=== PATIENT | female | born 1950 | race Caucasian/White ===

== ENCOUNTER → 2017-04-05 | Outpatient (CLI) | payer BC ==
--- NOTE | 2017-04-05 13:36 | WWHP ---
CHIEF COMPLAINT: The patient is here for her routine gynecologic exam and mammogram. HPI: This is a 66-year-old G2, P2 with an LMP of 1998. Patient is without gynecologic complaints. PAST MEDICAL HISTORY: Type 2 diabetes, coronary artery disease, elevated cholesterol, chronic hypertension, osteopenia and history of cardiac valve insufficiency. MEDICATIONS: Losartan 100 mg/25 mg daily, metoprolol 100 mg bid, metformin 500 t.i.d., Lipitor 80 mg daily, vitamin D3 1000 units daily, aspirin 325 mg daily, fish oil supplement, which she uses occasionally, [place]-3 supplement b.i.d. ALLERGIES: CARDIAC CATHETERIZATION DYE, which caused difficulty breathing and hives and PENICILLIN, which caused an unknown reaction. 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 SOCIAL HISTORY: She denies tobacco, alcohol and drug use. She has been since 1972. FAMILY HISTORY: Both parents had a IA and brother also had a IA. Mother had lung cancer. Father and two brothers had diabetes. Maternal aunt had breast cancer and some type of gynecologic cancer. REVIEW OF SYSTEMS: She has gained about 3 pounds over the last year. She denies respiratory, cardiac, or GI problems. PHYSICAL EXAM: Blood pressure 157/78, height 5 feet 0 inches, weight 156 pounds. Temperature 98.1, pulse 63. This is a well developed, well nourished white female who is alert and oriented x3 in no acute distress. HEENT is within normal limits. Neck is supple without mass or thyromegaly. Chest and lungs clear to auscultation. Heart: Regular rate and rhythm. Breasts are without mass or discharge. Axillary exam is negative for adenopathy. Back negative for CVA tenderness. Abdomen is soft, nontender without palpable masses. Pelvic exam: External genitalia reveals mild atrophy without lesions. Cervix and vagina reveals mild atrophy without lesions. There is no evidence of prolapse. The uterus is mid-position, nongravid size and nontender. There are no palpable adnexal masses or tenderness. Rectovaginal exam is negative for mass or tenderness and is negative for occult blood. Extremities are nontender. IMPRESSION: 1. A 66-year-old menopausal female with normal gynecologic exam. 2. History of osteopenia. 3. Multiple medical problems. 4. Elevated blood pressure with history of chronic hypertension. PLAN: 1. PAP smear was deferred since she had a normal one last year. 2. Self breast examination was discussed. 3. Mammogram will be done today. 4. We have discussed her elevated blood pressure. I have recommended that she do home blood pressure checks on a regular basis and follow up with Dr. Tan for blood pressure elevations. 5. Osteoporosis prevention was discussed. We will plan on repeating bone density testing in one year. 6. She will return in one year. HEIDI
--- NOTE | 2017-04-06 08:03 | MM ---
Reason for exam: screening (asymptomatic). Last mammogram was performed 1 year and 6 months ago. History: Patient is postmenopausal. Family history of breast cancer in maternal aunt at age 71. Benign excisional biopsy of the right breast. Physical Findings: A clinical breast exam by your physician is recommended on an annual basis and results should be correlated with mammographic findings. MG Screening Mammo w CAD Bilateral CC and MLO view(s) were taken. Prior study comparison: October 07, 2015, bilateral MG screening mammo w CAD. July 16, 2014, bilateral MG screening mammo w CAD. There are scattered fibroglandular densities. There is no discrete abnormality. No significant changes when compared with prior studies. ASSESSMENT: Negative, BI-RAD 1 RECOMMENDATION: Routine screening mammogram of both breasts in 1 year.
== END | disposition home or self-care (01) ==
LOC: WWCWWP 09:17
PROVIDERS: ATTEND Obstetrics & Gynecology
DX: Z12.31 Encounter for screening mammogram for malignant neoplasm of breast (principal)

== ENCOUNTER → 2018-05-24 | Outpatient (CLI) | payer MEDICARE, OTHER ==
[2018-05-24 09:47] VITALS: BP 196/84; PULSE 71; TEMP 97; BMI 30.7
--- NOTE | 2018-05-24 10:36 | P.HPOB ---
History of Present Illness H&P Date: 05/24/18 Chief Complaint: The patient is here for her routine gynecologic exam and mammogram. This is a 68-year-old G2 PII with an LMP of 1998. The patient is without gynecologic complaints and denies any postmenopausal bleeding. Review of Systems The patient's weight has been stable. She denies respiratory, cardiac and G.I. problems. She denies maltreatment or problems with falling. : she denies any significant problems with urinary leakage. Past Medical History Past Medical History: Coronary Artery Disease (CAD), Diabetes Mellitus (Type II diabetes), Hyperlipidemia, Hypertension Additional Past Medical History / Comment(s): Cardiac valve insufficiency and osteopenia (used Fosamax for 3 months). 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 History of Any Multi-Drug Resistant Organisms: None Reported Past Surgical History: Breast Surgery (Biopsy in the past), Coronary Bypass/ CABG (Triple bypass), Heart Catheterization With Stent (2013) Additional Past Surgical History / Comment(s): triple bypass. Colonoscopy 2013 (2nd). Date of Last Stent Placement:: 10/24/13 Past Psychological History: No Psychological Hx Reported Smoking Status: Never smoker Past Alcohol Use History: None Reported Past Drug Use History: None Reported Additional History: She has been since 1972. - Past Family History Father Family Medical History: Diabetes Mellitus, Myocardial Infarction ([place]) Mother Family Medical History: Cancer (lung), Myocardial Infarction ([place]) Additional Family Medical History / Comment(s): Maternal aunt had breast cancer. Brother(s) Family Medical History: Diabetes Mellitus Medications and Allergies Home Medications Medication Instructions Recorded Confirmed Type Aspirin PO DAILY 05/24/18 05/24/18 History Atorvastatin [Lipitor] 0.5 PO DAILY 05/24/18 History Cholecalciferol (Vitamin D3) PO DAILY 05/24/18 History [Vitamin D3] Losartan/Hydrochlorothiazide PO DAILY 05/24/18 History [Losartan-Hctz 100-25 mg Tab] Metoprolol Tartrate [Lopressor] PO BID 05/24/18 History [place]-3 Fatty Acids/Fish Oil [Fish PO DAILY 05/24/18 History Oil 1,000 mg Softgel] metFORMIN HCL [Glucophage] PO TID 05/24/18 History Allergies Allergy/AdvReac Type Severity Reaction Status Date / Time Penicillins Allergy Unknown Nausea Unverified 05/24/18 09:41 Exam Vital Signs Temp Pulse BP 05/24/18 09:42 97.0 F L 71 196/84 Intake and Output 05/23/18 05/24/18 05/24/18 22:59 06:59 14:59 Other: Weight 71.214 kg Height 5'0", BMI 30.7, repeat blood pressure 166/96. This is a well-developed well-nourished heavyset white female who is alert and oriented times 3 in no acute distress. HEENT: Within normal limits. NECK: Supple without mass or thyromegaly. CHEST AND LUNGS: Clear to auscultation. HEART: Regular rate and rhythm. BREASTS: Are without mass or discharge. AXILLARY EXAM: Negative for adenopathy. BACK: Negative for CVA tenderness. ABDOMEN: Soft, nontender, without palpable masses. PELVIC EXAM: Normal external genitalia with mild atrophy. Cervix and vagina appear normal with mild atrophy. There is no unusual discharge. There is no evidence of prolapse. The uterus is midposition, nongravid size and nontender. There are no palpable adnexal masses or tenderness. RECTAL EXAM: rectovaginal exam is negative for mass or tenderness and is negative for occult blood. EXTREMITIES: Nontender. IMPRESSION: 1. 68-year-old menopausal female with normal gynecologic exam. 2. History of osteopenia. 3. History of chronic hypertension with elevated blood pressure today. 4. Multiple medical problems. PLAN: 1. Pap smear was performed. 2. Self breast awareness was discussed with the patient. 3. Screening mammogram will be done today. 4. We discussed her blood pressure elevation. I have stressed the importance of having regular blood pressure checks and follow up with her primary care physician and exercise scientist for blood pressure elevations. She does have a blood pressure cuff at home and I have recommended that she take her blood pressure at least daily. I have asked her to record her blood pressures and to follow up with her doctors for blood pressure elevations. 5. Osteoporosis prevention was discussed. I have recommended repeating her bone density testing. She would like to do this at her next annual visit in one year. 6. She plans to get a flu shot in the near future. 7. She will return in one year.
--- NOTE | 2018-05-25 12:43 | MM ---
Reason for exam: screening (asymptomatic). Last mammogram was performed 1 year and 2 months ago. History: Patient is postmenopausal. Family history of breast cancer in maternal aunt at age 71. Benign excisional biopsy of the right breast. Physical Findings: A clinical breast exam by your physician is recommended on an annual basis and results should be correlated with mammographic findings. MG Screening Mammo w CAD Bilateral CC and MLO view(s) were taken. Prior study comparison: April 05, 2017, bilateral MG screening mammo w CAD. October 07, 2015, bilateral MG screening mammo w CAD. There are scattered fibroglandular densities. There is chronic nodularity bilaterally. No significant changes when compared with prior studies. ASSESSMENT: Benign, BI-RAD 2 RECOMMENDATION: Routine screening mammogram of both breasts in 1 year.
== END | disposition home or self-care (01) ==
LOC: WWCWWP 09:21
PROVIDERS: ATTEND Obstetrics & Gynecology
DX: Z12.31 Encounter for screening mammogram for malignant neoplasm of breast (principal)
CPT/HCPCS: 77067

== ENCOUNTER 2020-06-08 00:44 | Emergency (ER) | payer MEDICARE, OTHER ==
[2020-06-08 00:56] VITALS: RESP 16
[2020-06-08] MEDS ORDERED: HYDROcodone/APAP 5-325MG 1 EACH TAB PO STA (01:23)
--- NOTE | 2020-06-08 01:47 | XR ---
EXAM: XR Right Forearm, 2 Views CLINICAL HISTORY: ITS.REASON XR Reason: fall, pain TECHNIQUE: Frontal and lateral views of the right forearm. COMPARISON: No previous studies. FINDINGS: Bones/joints: Acute comminuted fracture of the distal right radius is noted with dorsal angulation of the fracture fragment distally. Mild osteoarthritic changes about the right wrist joint. No dislocation. Soft tissues: Soft tissue swelling. IMPRESSION: 1. Acute fracture of the distal right radius with dorsal angulation. 2. Soft tissue swelling.
--- NOTE | 2020-06-08 01:47 | ED ---
General Adult HPI - General Chief complaint: Extremity Injury, Upper Stated complaint: Fall, rt arm injury Time Seen by Provider: 06/08/20 01:04 Source: patient, family, RN notes reviewed, old records reviewed Mode of arrival: ambulatory Limitations: no limitations - History of Present Illness Initial comments: 70-year-old female patient proceeded for evaluation of a mechanical fall. Patient reports that she was helping her ambulate when their legs became tangled up and they fell to the ground. Reports her arm was caught underneath her. Complaining of distal radius pain. Denies hitting her head. Denies any injury besides her wrist. Denies any new neck pain or back pain. Systemic: Pt denies fatigue, fever/chills, rash. Pt denies weakness, night sweats, weight loss. Neuro: Pt denies headache, visual disturbances, syncope or pre-syncope. HEENT: Pt denies ocular discharge or irritation, otalgia, rhinorrhea, pharyngitis or notable lymphadenopathy. Cardiopulmonary: Pt denies chest pain, SOB, heart palpitations, dyspnea on exertion. Abdominal/GI: Pt denies abdominal pain, n/v/d. : Pt denies dysuria, burning w/ urination, frequency/urgency. Denies new onset urinary or bowel incontinence. Neuro: Pt denies new onset weakness, paresthesias. - Related Data Home Medications Medication Instructions Recorded Confirmed Aspirin PO DAILY 05/24/18 05/24/18 Atorvastatin [Lipitor] 0.5 PO DAILY 05/24/18 Cholecalciferol (Vitamin D3) PO DAILY 05/24/18 [Vitamin D3] Losartan/Hydrochlorothiazide PO DAILY 05/24/18 [Losartan-Hctz 100-25 mg Tab] Metoprolol Tartrate [Lopressor] PO BID 05/24/18 [place]-3 Fatty Acids/Fish Oil [Fish PO DAILY 05/24/18 Oil 1,000 mg Softgel] metFORMIN HCL [Glucophage] PO TID 05/24/18 Allergies Allergy/AdvReac Type Severity Reaction Status Date / Time Penicillins Allergy Unknown Nausea Verified 06/08/20 00:56 Iodine and Iodide Containing Allergy Anaphylaxis Verified 06/08/20 00:56 Produc Review of Systems ROS Statement: Those systems with pertinent positive or pertinent negative responses have been documented in the HPI. ROS Other: All systems not noted in ROS Statement are negative. Past Medical History Past Medical History: Coronary Artery Disease (CAD), Diabetes Mellitus, Hyperlipidemia, Hypertension Additional Past Medical History / Comment(s): Cardiac valve insufficiency and osteopenia (used Fosamax for 3 months). 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 History of Any Multi-Drug Resistant Organisms: None Reported Past Surgical History: Breast Surgery, Coronary Bypass/CABG, Heart Catheterization With Stent Additional Past Surgical History / Comment(s): triple bypass. Colonoscopy 2013 (2nd). Date of Last Stent Placement:: 10/24/13 Past Psychological History: No Psychological Hx Reported Smoking Status: Never smoker Past Alcohol Use History: None Reported Past Drug Use History: None Reported - Past Family History Father Family Medical History: Diabetes Mellitus, Myocardial Infarction ([place]) Mother Family Medical History: Cancer (lung), Myocardial Infarction ([place]) Additional Family Medical History / Comment(s): Maternal aunt had breast cancer. Brother(s) Family Medical History: Diabetes Mellitus General Exam - General Exam Comments Initial Comments: Constitutional: NAD, AOX3, Pt has pleasant affect. HEENT: NC/AT, trachea midline, neck supple, no lymphadenopathy. External ears appear normal, without discharge. Mucous membranes moist. Eyes PERRLA, EOM intact. There is no scleral icterus. No pallor noted. Cardiopulmonary: RRR, no murmurs, rubs or gallops, no JVD noted. Lungs CTAB in anterior and posterior perales. No peripheral edema. Abdominal exam: Abdomen soft and non-distended. Abdomen non-tender to palpation in all 4 quadrants. Bowel sounds active in LLQ. No hepatosplenomegaly. No ecchymosis Neuro: CN II-XI intact. No nuchal rigidity. No raccon eyes, no harvey sign, no hemotympanum. No cervical spinal tenderness. MSK: Right distal radius tender to palpation some soft tissue swelling. No laceration. Full active ROM of fingers, neurovascularly intact. Radial pulse +2 bilaterally. All extremities arepalpated no other signs of trauma or tenderness is noted. Patient placed in sugar tong splint neurovascularly intact before and after splint placement. Limitations: no limitations Course Vital Signs 06/08/20 06/08/20 00:52 02:00 Temperature 98.9 F Pulse Rate 73 75 Respiratory 16 16 Rate Blood Pressure 188/101 178/89 O2 Sat by Pulse 99 97 Oximetry Medical Decision Making - Medical Decision Making 70-year-old female patient presented to ED for evaluation mechanical fall. Physical exam displayed distal radius tenderness, plain film displayed distal radius fracture. Pt ambulatory without difficulty. Patient placed in sugar tong splint discharge the patient follow-up and return precautions her case discussed with Dr. aCsas. Disposition Clinical Impression: Distal radius fracture Disposition: HOME SELF-CARE Condition: Stable Instructions (If sedation given, give patient instructions): Wrist Fracture in Adults (ED) Additional Instructions: Continue to wear splint. Follow up with orthopedic consult tomorrow. Return to ER with any worsening symptoms. Is patient prescribed a controlled substance at d/c from ED?: No Referrals: Scott Tan DO [Primary Care Provider] - 1-2 days Garrick Reid DO [Doctor of Osteopathic Medicine] - 1-2 days
--- NOTE | 2020-06-08 01:49 | XR ---
EXAM: XR Right Hand Complete, 3 or More Views CLINICAL HISTORY: ITS.REASON XR Reason: fall, pain TECHNIQUE: Frontal, lateral and oblique views of the right hand. COMPARISON: No previous study. FINDINGS: Bones/joints: Moderate osteoarthritic changes at the DIP and PIP joints. Acute fracture of the distal right radius. Carpal bones are unremarkable. No acute fractures the osseous structures of the hand. No dislocation. Soft tissues: Unremarkable. No radiopaque foreign body. IMPRESSION: 1. Advanced osteoarthritic changes of the hand. 2. Acute fracture of the distal right radius.
--- NOTE | 2020-06-08 01:50 | XR ---
EXAM: XR Right Wrist, 2 Views CLINICAL HISTORY: ITS.REASON XR Reason: fall, pain TECHNIQUE: Frontal and lateral views of the right wrist. COMPARISON: No previous studies. FINDINGS: Bones/joints: Acute fracture of the distal right radius is noted with dorsal undulation of the distal fracture fragment. Mild osteoarthritic changes about the carpal bones. No dislocation. Soft tissues: Soft tissue swelling about the right wrist showed. No radiopaque foreign body. IMPRESSION: 1. Acute fracture of the distal right radius with dorsal angulation appeared 2. Soft tissue swelling.
[2020-06-08] MEDS ORDERED: ACET/COD 300 MG/30 MG STARTER PACK 6 TAB BTL PO STA (02:51)
[2020-06-08 03:09] VITALS: BP 180/73; PULSE 66; TEMP 98.1
== END 2020-06-08 03:03 | disposition home or self-care (01) ==
LOC: EC 00:44
DX: S52.591A Other fractures of lower end of right radius, initial encounter for closed fracture (principal); I25.10 Atherosclerotic heart disease of native coronary artery without angina pectoris; E78.5 Hyperlipidemia, unspecified; I10 Essential (primary) hypertension; E11.9 Type 2 diabetes mellitus without complications; Z79.82 Long term (current) use of aspirin; Z88.0 Allergy status to penicillin; Z91.048 Other nonmedicinal substance allergy status; Z95.1 Presence of aortocoronary bypass graft; W19.XXXA Unspecified fall, initial encounter
CPT/HCPCS: 29515; 99284

== ENCOUNTER 2020-06-13 10:47 | Day surgery (SDC) | payer MEDICARE, OTHER ==
[2020-06-11 08:39] VITALS: BMI 27.3
[~2020-06-13 10:47] MED LIST: DEXAMETHASONE SOD PHOSPHATE 10 MG/ML 1 ML VIAL IV ONE; LACTATED RINGERS 1,000 ML IV SCH; LIDOCAINE 1% (10MG/ML) FOR IV START INTRADERMA PRN; ONDANSETRON 4 MG/2 ML VIAL IVP ONE
[2020-06-13 11:31] LABS: Glucose,Whole Blood 151 mg/dL (75-99)
[2020-06-13 11:32] VITALS: RESP 16
[2020-06-13] MEDS ORDERED: MIDAZOLAM 2 MG/2 ML VIAL IV ONE (12:12)
[2020-06-13] MEDS ORDERED: PROPOFOL 10 MG/ML 20 ML VIAL IV ONE (12:54)
[2020-06-13] MEDS ORDERED: fentaNYL (PF) 50 MCG/ML 2 ML AMP ONE (12:54)
[2020-06-13] MEDS ORDERED: ePHEDrine SULFATE/0.9% NACL/PF 50 MG/5 ML SYRINGE IV ONE (12:54)
[2020-06-13] MEDS ORDERED: LIDOCAINE 1% INJ 10MG/ML (20 ML MDV) ONE (12:54)
[2020-06-13] MEDS ORDERED: SUCCINYLCHOLINE CHLORIDE 100 MG/5 ML SYR IV ONE (12:54)
[2020-06-13] MEDS ORDERED: DEXAMETHASONE SOD PHOSPHATE 4 MG/ML 1 ML VIAL ONE (12:54)
[2020-06-13] MEDS ORDERED: ROPIVACAINE 5 MG/ML 30 ML VIAL ONE (12:54)
[2020-06-13] MEDS ORDERED: MIDAZOLAM 2 MG/2 ML VIAL ONE (12:54)
--- NOTE | 2020-06-13 12:56 | P.HPOR ---
History of Present Illness H&P Date: 06/13/20 Chief Complaint: R wrist pain with fracture The patient is a 70 year old female with a chief complaint of pain in the right wrist. Patient states that on 06/07/2020 that she fell while helping her into the bathroom at home and landed on her right arm. 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 Patient was seen in the Emergency Room where xrays were obtained and she was placed in a splint. She states that she has had right wrist pain for 2 days. She reports radial sided wrist pain with swelling. She has been wearing her splint at all times. Patient is taking Tylenol with codeine as needed for pain. Patient is ambulating independently. Review of Systems 14 points review of systems completed and as stated in HPI or otherwise negative. Past Medical History Past Medical History: Coronary Artery Disease (CAD), Diabetes Mellitus, Hyperlipidemia, Hypertension Additional Past Medical History / Comment(s): Cardiac valve insufficiency and osteopenia (used Fosamax for 3 months). History of Any Multi-Drug Resistant Organisms: None Reported Past Surgical History: Breast Surgery, Coronary Bypass/CABG, Heart Catheterization With Stent Additional Past Surgical History / Comment(s): triple bypass. Colonoscopy 2013 (2nd),EDUARDO Past Anesthesia/Blood Transfusion Reactions: No Reported Reaction Additional Past Anesthesia/Blood Transfusion Reaction / Comment(s): unknown hx of blood transfusion. Date of Last Stent Placement:: 10/24/13 Smoking Status: Never smoker - Past Family History Father Family Medical History: Diabetes Mellitus, Myocardial Infarction (OK) Mother Family Medical History: Cancer, Myocardial Infarction ([place]) Additional Family Medical History / Comment(s): Maternal aunt had breast cancer. Brother(s) Family Medical History: Diabetes Mellitus Medications and Allergies Home Medications Medication Instructions Recorded Confirmed Type Aspirin 325 mg PO DAILY 05/24/18 06/11/20 History Atorvastatin [Lipitor] 80 mg PO DAILY 05/24/18 06/11/20 History Cholecalciferol (Vitamin D3) 2,000 unit PO DAILY 05/24/18 06/11/20 History [Vitamin D3] Losartan/Hydrochlorothiazide 1 tab PO QAM 05/24/18 06/11/20 History [Losartan-Hctz 100-25 mg Tab] Metoprolol Tartrate [Lopressor] 200 mg PO QAM 05/24/18 06/11/20 History metFORMIN HCL [Glucophage] 500 mg PO TID 05/24/18 06/11/20 History Acetaminophen-Codeine 300-30mg 1 - 2 tab PO Q4-6H PRN 06/11/20 06/11/20 History [Tylenol w/codeine #3] Ezetimibe [Zetia] 10 mg PO DAILY 06/11/20 06/11/20 History Metoprolol Tartrate [Lopressor] 100 mg PO 1700 06/11/20 06/11/20 History amLODIPine BESYLATE 5 mg PO QAM 06/11/20 06/11/20 History Allergies Allergy/AdvReac Type Severity Reaction Status Date / Time Penicillins Allergy Unknown Nausea Verified 06/11/20 08:18 Iodine and Iodide Containing Allergy Anaphylaxis Verified 06/11/20 08:18 Produc alendronate sodium AdvReac severe Verified 06/11/20 08:46 [From Fosamax] sore mouth,loss of taste Physical Examination Osteopathic Statement: *. No significant issues noted on an osteopathic structural exam other than those noted in the History and Physical/Consult. General: Well appearing, well nourished in no distress. Body Habitus: Mesomorphic WRIST: right Swelling: moderate Ecchymosis: mild Deformity: none Tenderness: distal radius Pain on forearm rotation: moderate Skin: intact, except as noted above Neurovascular: intact sensation, good pulses Motor: able to flex/extend fingers actively DRUJ: stable Elbow: non tender Shoulder: non tender Results XRAY: 2 views of the right wrist were reviewed today. These demonstrate a wrist fracture: there is comminution intra-articular extension of the distal radius. While there is good alignment at this time I do feel that this has a high propensity for failure secondary to the patient's dominant wrist as well as the comminution. There is dorsal comminution as well as shortening in the original films which is significant. While holding in the splint right now. Assessment and Plan Assessment: RIGHT distal radius fracture, closed, displaced, comminuted. Plan: Orthopedic Surgery Risk Review Jessica Romano is a 70 yo RHD female presenting for evaluation of sudden onset R wrist pain, inability to bear weight after falling while helping her who has parkinsons. It was my pleasure to have seen and examined Jessica Romano. In our visit today we have had a chance to go over subjective complaints, physical examination findings and treatments including the natural course history without intervention and various interventional options. Her imaging demonstrates Comminuted intraarticular distal radius fracture with dorsal angulation. On physical exam, Jessica Romano demonstrates pain with motion of the fingers of the RUE, wrist and pain with palpation, which is NV intact at this time. I have explained to the patient that this fracture needs stabilization. Based on the patients imaging, physical exam, and the rapid progression and disabling nature of her symptoms, at this time I recommend surgery in the form or a:ORIF R distal radius I discussed the risk and benefits of this procedure at length with Jessica Romano. Questions were invited and answered, and the patient wishes to proceed as outlined below. Currently, I am recommendin. Open reduction and internal fixation of RIGHT distal radius with plates and screws. 2. Review of surgical risks and benefits as well as an educational packet on the proposed surgical procedure. 3. Follow up with PCP prior to surgery for clearance Risks: All surgical procedures come with inherent risks, including those related to positioning, anesthesia, intraoperative findings, and postoperative complications. It is important to understand that surgery does not come with any guarantee of a successful outcome as complications and adverse events are always possible. The patient was given a handout discussing the surgical procedure and risks associated with the intervention, both of which were discussed with the patient. These risks include but are not limited to the following: - Experiencing same, different or even worse symptoms compared to before surgery. - Requiring further surgery or other forms of treatment presently or at some time in the future . - On an extreme but fortunately relatively rare basis severe complication such as blindness, stroke, heart attack, temporary and/or permanent nerve injury, paralysis, coma, or may occur, sometimes without known explanati on. - Surgical complications may include but are not limited to risk of infection, fluid accumulation in the surgical dissection site, including a seroma or hematoma, that requires additional surgery, wound drainage, bleeding, new numbness or weakness, vision changes/loss, spinal fluid leakage, non-healing and/or infected incision, headaches, difficulty or inability to swallow, hoarseness, hemopneumothorax, pneumothorax, injury to nerves, spinal cord, blood vessels, lymphatics or other vital organs (i.e., bowel injury, injury to the great vessels); heterotopic bone formation; complications related to the hardware such as screws, rods, including misplaced hardware, device failure, hardware fracture/breakage, or hardware loosening; retained surgical instrumentations or devices and the need for further surgery. - Medical risks of the planned surgery include but are not limited to generalized Infections to the whole body or local areas outside of the surgical site (sepsis), heart attack, bleeding, anaphylaxis, meningitis, seizure, epilepsy, hearing loss, burn crook, laceration of the head or other areas of the body, bruising, hypersensitivity of the skin, bladder over distension; allergic reaction; shoulder injury related to positioning; fat, blood and air clots to other areas of the body like heart, lungs, brain; failure of internal organs such as lungs, kidneys, liver and excessive bleeding. If blood transfusions are necessary, note that transfusions may cause intolerance reactions such as anaphylaxis or other complex reactions. Despite best efforts, the results of surgery might not heal in terms of bone, soft tissues such as skin, fascia, ligaments, and joints. [facility] is an educational center that serves as a training facility for physician assistants, nurses, orthopedic residents and fellows. Residents are physicians who are completing their surgical intensive training following medical school. They assist in the operating room with direct supervision of the attending surgeons. [place] are surgeons who have completed their training and eligible for board certification. They have opted for an elective year of more specialized training in their field. They assist in the operating room under the supervision of the attending surgeons. Physician assistants are medically trained surgical providers who function in the outpatient, inpatient, and operating room setting under the direct supervision of the attending surgeon. [facility] has multiple operating rooms with single and overlapping rooms running daily. They currently function under the required guidelines as produced by the [facility] Finance Committee with regards to the overlapping rooms and will continue to comply with changes to this policy as they occur. The requirements include and are complied with as follows: (1) the critical portions of the overlapping rooms will not occur at the same time, (2) the attending physician will be physically present during the critical portions of the procedure and immediately available during the entire case, and (3) a back-up attending is designated should the primary attending not be immediately available. The patient has had a chance to review all the listed information, has been given print outs detailing this information, and has had all his/her questions answered to their satisfaction. It was my pleasure to have seen and examined Jessica Romano. In our visit today we have had a chance to go over my understanding of our patient's current condition, the natural course history without intervention and various interventional options. Questions were invited and answered, and the patient wishes to proceed as outlined above. I have seen and examined the patient for 25 minutes and we have spent more than 50% of the time in repeat and detailed counseling about the patient's condition, its natural course history with out and as much as can be predicted with surgery and re-review of various surgical treatment options. In conclusion, Jessica Romano requested we proceed with the above suggested surgery and are willing to accept risks and limitations of the suggested surgery as nature of the disease process and our best attempts at treatment for the condition. Thank you again for allowing us to be part of your patient's care. Please don't hesitate to contact me if you have any further questions. Signed and authenticated by: Garrick Orta [facility] [place] [address] [address]
[2020-06-13] MEDS ORDERED: CLINDAMYCIN 600 MG in SODIUM CHLORIDE 0.9% 1,000 ML IRRIGATION ONE (13:21)
[2020-06-13 14:25] VITALS: TEMP 97
--- NOTE | 2020-06-13 14:39 | P.OP ---
Date of Procedure: 06/13/20 Preoperative Diagnosis: Right distal radius fracture, intraarticular, comminuted, minimally displaced Postoperative Diagnosis: Right distal radius fracture, intraarticular, comminuted, minimally displaced Procedure(s) Performed: ORIF right distal radius with plate and screws Implants: Arthrex 3.5 distal radius plate, narrow Anesthesia: MAC Surgeon: Garrick Reid Estimated Blood Loss (ml): 10 IV fluids (ml): 200 Urine output (ml): 0 Pathology: none sent Condition: stable Disposition: PACU Indications for Procedure: The patient is a 70 year old female with a chief complaint of pain in the right wrist. Patient states that on 06/07/2020 that she fell while helping her into the bathroom at home and landed on her right arm. 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 Patient was seen in the Emergency Room where xrays were obtained and she was placed in a splint. She states that she has had right wrist pain for 2 days. She reports radial sided wrist pain with swelling. She has been wearing her splint at all times. Patient is taking Tylenol with codeine as needed for pain. Patient is ambulating independently. Operative Findings: Acute, nondisplaced, comminuted distal radius fracture, unstable intraoperatively. Description of Procedure: The patient was seen and examined in the preoperative area. All preoperative protocols were followed. Informed consent was obtained risks and benefits of the procedure were discussed at length. Risks including bleeding infection damage to the surrounding tissue and risk of reoperation were discussed with the patient. Risk of anesthesia up to and including was a discussed with the patient. These are outlined in the risk reviewed. They were willing to accept these risks and all of the risks of surgery. The patient was given a weight- based dose of antibiotics in the form of 2 g Ancef IVPB 1. The patient was seen and evaluated by the anesthesia team who deemed them fit for surgery. The site was marked, the patient was willing to proceed with the procedure. The patient was transferred to the operative suite by the Department of anesthesia. There were then drifted off to sleep by the department of anesthesia and Bob with LMA anesthesia was used. Once adequate anesthesia had been obtained the patient was carefully transferred to the operative bed. All bony prominences were padded accordingly. SCDs were placed on the nonoperative lower extremities. Arms were well padded. Right arm was exposed and placed on a arm board. 18 tourniquet was placed in the patient's upper arm and well-padded. Preoperative briefing was done with the operative team and everyone was ready for the procedure to start. The patients right arm was then prepped and draped in the normal sterile fashion. Timeout was then performed and all parties in agreement with the procedure to be performed. Skin marker was used to otto out a volar Armando approach over the FCR. Tourniquet was inflated to 200 mmHg after exsanguination of the arm with an Esmarch. Incision was made and blunt dissection was taken down to the FCR sheath. This is identified and cleaned. Once his identifying cleating inside knife was used to incise the FCR sheath. FCR was then retracted medially and the sheath was incised in the deep layer. Blunt dissection was then taken down removing the flexors medially to ensure protection of the nerve. The pronator quadratus was encountered and was still intact although ecchymotic and swollen. The pronator quadratus was then removed from the radial border in L-shaped fashion and then the distal border using sharp dissection followed by blunt dissection. The distal radius bone was exposed and visualized. The fracture was identified and reduced. Once in a reduced position a plate was selected and placed under fluoroscopic guidance. 35 pins were placed in the plate to hold it in place. A shaft screw was then placed in the variable hole. This was drilled and measured and then the screw was placed. Attention was then drawn to the proximal roll of the distal portion of the plate. One nonlocking screw was placed in this after being drilled and measured appropriately. This is confirmed to be in good position under lateral fluoroscopy. This followed by placement of the distal row pegs in a locking fashion these were drilled and measured confirmed under lateral fluoroscopy and then placed atraumatically. The remaining proximal row screws were then drilled measured and placed appropriately. Once confirming good position on AP and lateral fluoroscopy the remainder of the shaft screws were placed through drill and measure method. Plate was confirming good position on AP and lateral screw lengths were confirmed to be good in AP and lateral. 30 radial tilt view demonstrated no screws within the intra-articular space. The fracture maintained good reduction throughout. The wound was then copiously irrigated with normal sterile saline. Tourniquet was then dropped and any bleeders were electrocauterized. Good hemostasis was confirmed. The pronator quadratus was sutured back over the plate. The wrist was ranged and the wrist was stable. The subcu was then closed using 3-0 Vicryl in a simple fashion followed by running 4-0 Monocryl subcuticular region. This was then cleaned and dried and skin glue was placed over the skin. Once this dried the wound was then dressed with sterile Adaptic 4 x 4 and Kerlix the patient was placed in a volar splint made of plaster. This is then overwrapped with an Ino wrap and well-padded. The patient was then transferred back to their hospital bed. There were awakened by department of anesthesia having tolerated the procedure very well with no complications. The patient was then transported to the postoperative care unit in stable condition.
[2020-06-13] MEDS ORDERED: LACTATED RINGERS 1,000 ML IV ONE (15:46)
[2020-06-13 16:10] VITALS: BP 146/74; PULSE 86
[2020-06-13 16:16] LABS: Glucose,Whole Blood 215 mg/dL (75-99)
--- NOTE | 2020-06-13 16:56 | FL ---
EXAMINATION TYPE: FL guidance operating room, XR wrist limited RT DATE OF EXAM: 06/13/2020 CLINICAL HISTORY: ORIF right wrist TECHNIQUE: Fluoroscopy. COMPARISON: Right wrist radiograph 06/08/2020. FINDINGS: Fluoroscopic guidance was provided during procedure performed by Dr. Reid. A total of 1.1 seconds of fluoroscopic time was utilized during the procedure and 4 spot images was acquired. IMPRESSION: As Above.
--- NOTE | 2020-06-14 19:36 | P.ANPRN ---
Procedure Note - Anesthesia - Nerve Block Performed Right Supraclavicular Single Time Out Performed: Yes Date of Procedure: 06/13/20 Procedure Start Time: 12:10 Procedure Stop Time: 12:14 Location of Patient: PreOp Indication: Acute Post-Operative Pain, Requested by Surgeon Sedation Type: Sedate with meaningful contact maintained Preparation: Sterile Prep Position: Supine Needle Types: Pajunk Needle Gauge: 21 Ultrasound used to visualize needle placement: Yes Ultrasound used to observe medication spread: Yes Blood Aspirated: No Pain Paresthesia on Injection Noted: No Resistance on Injection: Normal Image Stored and Saved: Yes Events: Uneventful and Well Tolerated (Ropivacaine 0.5% 20 mL. Dexamethasone 4 mg)
--- NOTE | 2020-06-17 07:55 | CDI ---
Date: 06.17.2020 CDS/Production Clerk Name: Samanta Matos Phone: If any questions, call Rosina Drake Expander at [phone] Patient Name: Jessica Romano Admit Date 06.13.20 Discharge Date: 06.13.20 ATTENTION: The [facility] Coding Staff appreciate your assistance in clarifying documentation. Please respond to the clarification below the line at the bottom and electronically sign. The [facility] Coding staff will review the response and follow-up if needed. Please note: Queries are made part of the Legal Health Record. If you have any questions, please contact the Expander. Dear Dr. Reid In order to code to the greatest specificity and for the greatest reimbursement I need the following information: An ORIF of the Right wrist was performed on this pt with an intraarticular fracture of radius. Please specify how many fragments: __2 fragments __3 or more fragments Thank you for your kind consideration. 3 or more fragments MTDD
== END 2020-06-13 16:34 | disposition home or self-care (01) ==
LOC: OR 10:47
PROVIDERS: ATTEND Orthopaedic Surgery
DX: S52.571A Other intraarticular fracture of lower end of right radius, initial encounter for closed fracture (principal); E11.9 Type 2 diabetes mellitus without complications; I10 Essential (primary) hypertension; E78.5 Hyperlipidemia, unspecified; I25.10 Atherosclerotic heart disease of native coronary artery without angina pectoris; I08.0 Rheumatic disorders of both mitral and aortic valves; F41.9 Anxiety disorder, unspecified; F32.9 Major depressive disorder, single episode, unspecified; K21.9 Gastro-esophageal reflux disease without esophagitis; Z88.0 Allergy status to penicillin; Z95.1 Presence of aortocoronary bypass graft; Z79.84 Long term (current) use of oral hypoglycemic drugs; Z79.899 Other long term (current) drug therapy; Z79.82 Long term (current) use of aspirin; Z98.890 Other specified postprocedural states; Z87.39 Personal history of other diseases of the musculoskeletal system and connective tissue; Z95.5 Presence of coronary angioplasty implant and graft; Z91.048 Other nonmedicinal substance allergy status; Z88.8 Allergy status to other drugs, medicaments and biological substances; Z97.2 Presence of dental prosthetic device (complete) (partial); Z83.3 Family history of diabetes mellitus; Z82.49 Family history of ischemic heart disease and other diseases of the circulatory system; Z80.9 Family history of malignant neoplasm, unspecified; Z80.3 Family history of malignant neoplasm of breast; W18.39XA Other fall on same level, initial encounter; Y93.F9 Activity, other caregiving; Y92.012 Bathroom of single-family (private) house as the place of occurrence of the external cause
CPT/HCPCS: 64415; 76942; 73100; 25609; C1713; J2250; J1100 ×2; J2405; J0690; J2001; J3010; J2795; J0330; J2704

== ENCOUNTER 2022-01-10 14:52 | Emergency (ER) | payer MEDICARE, OTHER ==
[2022-01-10 14:59] VITALS: RESP 18
[2022-01-10 14:59] LABS: Glucose,Whole Blood 265 mg/dL (75-99)
[2022-01-10] MEDS ORDERED: HYDROmorphone 1 MG/ML 1 ML SYRINGE IVP STA (15:33)
[2022-01-10] MEDS ORDERED: ONDANSETRON 4 MG/2 ML VIAL IVP STA (15:33)
[2022-01-10] MEDS ORDERED: ACETAMINOPHEN TAB 500 MG TAB PO STA (15:34)
[2022-01-10] MEDS ORDERED: SODIUM CHLORIDE 0.9% 1,000 ML IV ONE (15:34)
--- NOTE | 2022-01-10 15:36 | ED ---
Abdominal Pain HPI - General Chief Complaint: Abdominal Pain Stated Complaint: Adb pain Time Seen by Provider: 01/10/22 14:58 Source: patient, EMS Mode of arrival: EMS Limitations: no limitations - History of Present Illness Initial Comments: 71-year-old female with past history of valvular disease, diabetes, hypertension, hyperlipidemia, triple bypass who presents to the emergency department with epigastric abdominal pain. Reports that the pain started yesterday night and has gotten progressively worse. Described as a sharp shooting pain with associated nausea. Denies that the pain is worse with food intake. Denies chest pain or shortness of breath. No pain radiating to the back. Denies any changes in her bowel or bladder habits. Upon arrival patient is noted to have a fever. No other alleviating, precipitating or modifying factors - Related Data Home Medications Medication Instructions Recorded Confirmed Aspirin 325 mg PO DAILY 05/24/18 06/13/20 Atorvastatin [Lipitor] 80 mg PO DAILY 05/24/18 06/13/20 Cholecalciferol (Vitamin D3) 2,000 unit PO DAILY 05/24/18 06/13/20 [Vitamin D3] Losartan/Hydrochlorothiazide 1 tab PO QAM 05/24/18 06/13/20 [Losartan-Hctz 100-25 mg Tab] Metoprolol Tartrate [Lopressor] 200 mg PO QAM 05/24/18 06/13/20 metFORMIN HCL [Glucophage] 500 mg PO TID 05/24/18 06/13/20 Acetaminophen-Codeine 300-30mg 1 - 2 tab PO Q4-6H PRN 06/11/20 06/13/20 [Tylenol w/codeine #3] Ezetimibe [Zetia] 10 mg PO DAILY 06/11/20 06/13/20 Metoprolol Tartrate [Lopressor] 100 mg PO 1700 06/11/20 06/13/20 amLODIPine BESYLATE 5 mg PO QAM 06/11/20 06/13/20 Previous Rx's Medication Instructions Recorded Cephalexin [Keflex] 500 mg PO Q6HR #20 cap 06/13/20 Hydrocodone/Acetaminophen [[place] 1 each PO Q6HR PRN #28 tab 06/13/20 5-325] Allergies Allergy/AdvReac Type Severity Reaction Status Date / Time Penicillins Allergy Unknown Unknown Verified 01/10/22 14:59 Iodine and Iodide Containing Allergy Anaphylaxis Verified 01/10/22 14:59 Produc alendronate sodium AdvReac severe Verified 01/10/22 14:59 [From Fosamax] sore mouth,loss of taste Review of Systems ROS Statement: Those systems with pertinent positive or pertinent negative responses have been documented in the HPI. ROS Other: All systems not noted in ROS Statement are negative. Past Medical History Past Medical History: Coronary Artery Disease (CAD), Diabetes Mellitus, Hyperlipidemia, Hypertension Additional Past Medical History / Comment(s): Cardiac valve insufficiency and osteopenia (used Fosamax for 3 months). History of Any Multi-Drug Resistant Organisms: None Reported Past Surgical History: Breast Surgery, Coronary Bypass/CABG, Heart Catheterization With Stent Additional Past Surgical History / Comment(s): triple bypass. Colonoscopy 2013 (2nd),[facility]ARDO Past Anesthesia/Blood Transfusion Reactions: No Reported Reaction Additional Past Anesthesia/Blood Transfusion Reaction / Comment(s): unknown hx of blood transfusion. Date of Last Stent Placement:: 10/24/13 Past Psychological History: Anxiety, Depression Smoking Status: Never smoker Past Alcohol Use History: None Reported Past Drug Use History: None Reported - Past Family History Father Family Medical History: Diabetes Mellitus, Myocardial Infarction ([place]) Mother Family Medical History: Cancer, Myocardial Infarction ([place]) Additional Family Medical History / Comment(s): Maternal aunt had breast cancer. Brother(s) Family Medical History: Diabetes Mellitus General Exam Limitations: no limitations General appearance: alert, in no apparent distress Head exam: Present: atraumatic, normocephalic, normal inspection Eye exam: Present: normal appearance, PERRL, EOMI. Absent: scleral icterus, conjunctival injection, periorbital swelling ENT exam: Present: normal exam, mucous membranes moist Neck exam: Present: normal inspection. Absent: tenderness, meningismus, lymphadenopathy Respiratory exam: Present: normal lung sounds bilaterally. Absent: respiratory distress, wheezes, rales, rhonchi, stridor Cardiovascular Exam: Present: regular rate, normal rhythm, normal heart sounds. Absent: systolic murmur, diastolic murmur, rubs, gallop, clicks GI/Abdominal exam: Present: soft, tenderness (epigastric), normal bowel sounds. Absent: distended, guarding, rebound, rigid Extremities exam: Present: normal inspection, full ROM, normal capillary refill. Absent: tenderness, pedal edema, joint swelling, calf tenderness Back exam: Present: normal inspection Neurological exam: Present: alert, oriented X3, CN II-XII intact Psychiatric exam: Present: normal affect, normal mood Skin exam: Present: warm, dry, intact, normal color. Absent: rash Course Vital Signs 01/10/22 01/10/22 01/10/22 14:54 16:09 17:12 Temperature 101.0 F H 101.8 F H Pulse Rate 89 89 89 Respiratory 18 18 18 Rate Blood Pressure 137/79 149/67 143/66 O2 Sat by Pulse 95 99 Oximetry 01/10/22 18:47 Temperature 100.8 F H Pulse Rate 87 Respiratory 18 Rate Blood Pressure 111/53 O2 Sat by Pulse 96 Oximetry - Reevaluation(s) Reevaluation #1: Spoke with [facility] to attempt transfer. 01/10/22 2214 Reevaluation #2: Dr. Garcia accepts 01/10/22 18:25 Medical Decision Making - Medical Decision Making Upon arrival patient is placed in room 6. There was no physical exam was performed. IV access is established and laboratory studies were conducted. Patient is given a liter bolus of normal saline followed by 130 mL per hour. She is given 4 mg of Zofran for nausea, 1 mg of Dilaudid for pain and 1 g of Tylenol for fever. Blood cultures are obtained. Laboratory studies are reviewed and demonstrates a potassium of 3.3. Glucose 299. Lactic acid 2.8. AST 1314. ALT 900. Alk phos 447. Total bilirubin 3.5. Patient continues to be febrile and therefore is given a dose of Motrin. CT of the abdomen and pelvis is obtained without IV contrast that she does have an iodine ALLERGY. CT demonstrates distended gallbladder with multiple high-density stones. Additional stones in the common bile duct near the papilla. Stones measure 6 mm and 8mm. Common bile duct measures 8 mm. Question gallbladder wall thickening. Patient does have a penicillin ALLERGY and therefore started on Rocephin and Flagyl. Recommended transfer to a facility with GI capabilities. Family requests [facility] as this is the closest facility with GI capabilities. Called and spoke with Dr. Garcia who accepted transfer. Patient awaiting transfer in stable condition - Lab Data Result diagrams: 01/10/22 16:02 05/22/22 16:02 Lab Results 01/10/22 01/10/22 01/10/22 Range/Units 14:56 16:02 16:02 WBC 5.6 (3.8-10.6) k/uL RBC 4.09 (3.80-5.40) m/uL Hgb 12.1 (11.4-16.0) gm/dL Hct 35.3 (34.0-46.0) % MCV 86.5 (80.0-100.0) fL MCH 29.6 (25.0-35.0) pg MCHC 34.2 (31.0-37.0) g/dL RDW 13.2 (11.5-15.5) % Plt Count 217 (150-450) k/uL MPV 9.1 Neutrophils % Not Reportable Neutrophils % (Manual) 79 % Band Neuts % (Manual) 14 % Lymphocytes % Not Reportable Lymphocytes % (Manual) 5 % Monocytes % Not Reportable Eosinophils % Not Reportable Eosinophils % (Manual) 2 % Basophils % Not Reportable Neutrophils # Not Reportable Neutrophils # (Manual) 5.20 (1.3-7.7) k/uL Lymphocytes # Not Reportable Lymphocytes # (Manual) 0.28 L (1.0-4.8) k/uL Monocytes # Not Reportable Eosinophils # Not Reportable Eosinophils # (Manual) 0.11 (0-0.7) k/uL Basophils # Not Reportable Nucleated RBCs 0 (0-0) /100 WBC Manual Slide Review Performed PT 11.7 (9.0-12.0) sec INR 1.1 (<1.2) Sodium (137-145) mmol/L Potassium (3.5-5.1) mmol/L Chloride (98-107) mmol/L Carbon Dioxide (22-30) mmol/L Anion Gap mmol/L BUN (7-17) mg/dL Creatinine (0.52-1.04) mg/dL Est GFR (CKD-EPI)AfAm (>60 ml/min/1.73 sqM) Est GFR (CKD-EPI)NonAf (>60 ml/min/1.73 sqM) Glucose (74-99) mg/dL POC Glucose (mg/dL) 265 H (75-99) mg/dL POC Glu Maxillofacial Pathology ID Pratibha Bess Lactic Ac Sepsis Rflx Plasma Lactic Acid Antony (0.7-2.0) mmol/L Calcium (8.4-10.2) mg/dL Total Bilirubin (0.2-1.3) mg/dL AST (14-36) U/L ALT (4-34) U/L Alkaline Phosphatase (38-126) U/L Troponin I (0.000-0.034) ng/mL Total Protein (6.3-8.2) g/dL Albumin (3.5-5.0) g/dL Lipase (23-300) U/L Urine Color Urine Appearance (Clear) Urine pH (5.0-8.0) Ur Specific [place] (1.001-1.035) Urine Protein (Negative) Urine Glucose (UA) (Negative) Urine Ketones (Negative) Urine Blood (Negative) Urine Nitrite (Negative) Urine Bilirubin (Negative) Urine Urobilinogen (<2.0) mg/dL Ur Leukocyte Esterase (Negative) Urine RBC (0-5) /hpf Urine WBC (0-5) /hpf Ur Squamous Epith Cells (0-4) /hpf Hyaline Casts (0-2) /lpf Urine Mucus (None) /hpf 01/10/22 01/10/22 01/10/22 Range/Units 16:02 16:02 16:02 WBC (3.8-10.6) k/uL RBC (3.80-5.40) m/uL Hgb (11.4-16.0) gm/dL Hct (34.0-46.0) % MCV (80.0-100.0) fL MCH (25.0-35.0) pg MCHC (31.0-37.0) g/dL RDW (11.5-15.5) % Plt Count (150-450) k/uL MPV Neutrophils % Neutrophils % (Manual) % Band Neuts % (Manual) % Lymphocytes % Lymphocytes % (Manual) % Monocytes % Eosinophils % Eosinophils % (Manual) % Basophils % Neutrophils # Neutrophils # (Manual) (1.3-7.7) k/uL Lymphocytes # Lymphocytes # (Manual) (1.0-4.8) k/uL Monocytes # Eosinophils # Eosinophils # (Manual) (0-0.7) k/uL Basophils # Nucleated RBCs (0-0) /100 WBC Manual Slide Review PT (9.0-12.0) sec INR (<1.2) Sodium 135 L (137-145) mmol/L Potassium 3.3 L (3.5-5.1) mmol/L Chloride 101 (98-107) mmol/L Carbon Dioxide 22 (22-30) mmol/L Anion Gap 12 mmol/L BUN 16 (7-17) mg/dL Creatinine 0.89 (0.52-1.04) mg/dL Est GFR (CKD-EPI)AfAm 77 (>60 ml/min/1.73 sqM) Est GFR (CKD-EPI)NonAf 66 (>60 ml/min/1.73 sqM) Glucose 299 H (74-99) mg/dL POC Glucose (mg/dL) (75-99) mg/dL POC Glu Maxillofacial Pathology ID Lactic Ac Sepsis Rflx Plasma Lactic Acid Antony 2.8 H* (0.7-2.0) mmol/L Calcium 8.7 (8.4-10.2) mg/dL Total Bilirubin 3.5 H (0.2-1.3) mg/dL AST 1314 H (14-36) U/L ALT 900 H (4-34) U/L Alkaline Phosphatase 447 H (38-126) U/L Troponin I (0.000-0.034) ng/mL Total Protein 6.6 (6.3-8.2) g/dL Albumin 4.0 (3.5-5.0) g/dL Lipase 185 (23-300) U/L Urine Color Yellow Urine Appearance Cloudy H (Clear) Urine pH 5.0 (5.0-8.0) Ur Specific [place] 1.018 (1.001-1.035) Urine Protein 1+ H (Negative) Urine Glucose (UA) 4+ H (Negative) Urine Ketones 2+ H (Negative) Urine Blood Trace H (Negative) Urine Nitrite Negative (Negative) Urine Bilirubin Negative (Negative) Urine Urobilinogen <2.0 (<2.0) mg/dL Ur Leukocyte Esterase Negative (Negative) Urine RBC 1 (0-5) /hpf Urine WBC 2 (0-5) /hpf Ur Squamous Epith Cells 1 (0-4) /hpf Hyaline Casts 1 (0-2) /lpf Urine Mucus Rare H (None) /hpf 01/10/22 01/10/22 Range/Units 16:02 16:32 WBC (3.8-10.6) k/uL RBC (3.80-5.40) m/uL Hgb (11.4-16.0) gm/dL Hct (34.0-46.0) % MCV (80.0-100.0) fL MCH (25.0-35.0) pg MCHC (31.0-37.0) g/dL RDW (11.5-15.5) % Plt Count (150-450) k/uL MPV Neutrophils % Neutrophils % (Manual) % Band Neuts % (Manual) % Lymphocytes % Lymphocytes % (Manual) % Monocytes % Eosinophils % Eosinophils % (Manual) % Basophils % Neutrophils # Neutrophils # (Manual) (1.3-7.7) k/uL Lymphocytes # Lymphocytes # (Manual) (1.0-4.8) k/uL Monocytes # Eosinophils # Eosinophils # (Manual) (0-0.7) k/uL Basophils # Nucleated RBCs (0-0) /100 WBC Manual Slide Review PT (9.0-12.0) sec INR (<1.2) Sodium (137-145) mmol/L Potassium (3.5-5.1) mmol/L Chloride (98-107) mmol/L Carbon Dioxide (22-30) mmol/L Anion Gap mmol/L BUN (7-17) mg/dL Creatinine (0.52-1.04) mg/dL Est GFR (CKD-EPI)AfAm (>60 ml/min/1.73 sqM) Est GFR (CKD-EPI)NonAf (>60 ml/min/1.73 sqM) Glucose (74-99) mg/dL POC Glucose (mg/dL) (75-99) mg/dL POC Glu Maxillofacial Pathology ID Lactic Ac Sepsis Rflx Y Plasma Lactic Acid Antony (0.7-2.0) mmol/L Calcium (8.4-10.2) mg/dL Total Bilirubin (0.2-1.3) mg/dL AST (14-36) U/L ALT (4-34) U/L Alkaline Phosphatase (38-126) U/L Troponin I <0.012 (0.000-0.034) ng/mL Total Protein (6.3-8.2) g/dL Albumin (3.5-5.0) g/dL Lipase (23-300) U/L Urine Color Urine Appearance (Clear) Urine pH (5.0-8.0) Ur Specific [place] (1.001-1.035) Urine Protein (Negative) Urine Glucose (UA) (Negative) Urine Ketones (Negative) Urine Blood (Negative) Urine Nitrite (Negative) Urine Bilirubin (Negative) Urine Urobilinogen (<2.0) mg/dL Ur Leukocyte Esterase (Negative) Urine RBC (0-5) /hpf Urine WBC (0-5) /hpf Ur Squamous Epith Cells (0-4) /hpf Hyaline Casts (0-2) /lpf Urine Mucus (None) /hpf - EKG Data EKG Comments: EKG demonstrates sinus rhythm with a rate of 95. VA interval 156. QRS 85. QTC of 384. No acute ST segment elevations or depressions Disposition Clinical Impression: Abdominal pain, Transaminitis, Elevated alkaline phosphatase level, Choledocholithiasis, Cholecystitis, Sepsis, Pyrexia, Lactic acid acidosis, Hypokalemia Disposition: OTHER INSTITUTION NOT DEFINED Condition: Stable Is patient prescribed a controlled substance at d/c from ED?: No Referrals: Scott Tan DO [Primary Care Provider] - 1-2 days Time of Disposition: 18:25 - Out of Hospital Transfer - Req. Specs Out of Hospital Transfer - Requested Specifics: Other Emergency Center ([facility])
[2022-01-10 16:16] LABS: HCT 35.3 % (34.0-46.0); HGB 12.1 gm/dL (11.4-16.0); MCH 29.6 pg (25.0-35.0); MCHC 34.2 g/dL (31.0-37.0); MCV 86.5 fL (80.0-100.0); Mean Platelet Volume 9.1; Platelet Count 217 k/uL (150-450); RBC 4.09 m/uL (3.80-5.40); RDW 13.2 % (11.5-15.5); WBC 5.6 k/uL (3.8-10.6)
[2022-01-10 16:19] LABS: INR 1.1 (<1.2); Prothrombin Time 11.7 sec (9.0-12.0)
[2022-01-10 16:22] LABS: Calcium 8.7 mg/dL (8.4-10.2); Total Bilirubin 3.5 mg/dL (0.2-1.3); Total Protein 6.6 g/dL (6.3-8.2)
--- NOTE | 2022-01-10 16:26 | CT ---
EXAMINATION TYPE: CT abdomen pelvis wo con CT DLP: 484.5 mGycm, Automated exposure control for dose reduction was used. DATE OF EXAM: 01/10/2022 4:06 PM COMPARISON: none. CLINICAL INDICATION:Female, 71 years old with history of epigastric pain, fever; Epigastric abdominal pain and fever. TECHNIQUE: Standard CT of the abdomen and pelvis without IV or oral contrast. Lack of IV or oral co ntrast limits evaluation of solid and hollow organ viscera. Coronal and sagittal reformats were perfo rmed. FINDINGS: LOWER CHEST: Posterior dependent subsegmental atelectasis is noted. Sternotomy wires are present. Sma ll hiatal hernia present. ABDOMEN LIVER: Unremarkable GALLBLADDER AND BILE DUCTS: Distended gallbladder with multiple high density stones present. Addition al stones are seen in the distal common bile duct near the papilla. Stones measure 6 and 8 mm., Commo n duct measures up to 8 mm. Questionable gallbladder wall thickening. Could be secondary to choledoch olithiasis. PANCREAS: Unremarkable. SPLEEN: Unremarkable. ADRENAL GLANDS: Unremarkable. KIDNEYS AND URETERS: No evidence of hydronephrosis or renal calculus. The ureters are unremarkable. PELVIS BLADDER: Unremarkable REPRODUCTIVE: Unremarkable. ABDOMEN & PELVIS STOMACH AND BOWEL: Small hiatal hernia, duodenum is unremarkable. Scattered diverticula are noted thr oughout the colon. No evidence of bowel obstruction. Appendix is normal. PERITONEUM: No evidence of pneumoperitoneum or free fluid. VASCULATURE: No evidence of aortic aneurysm. MUSCULOSKELETAL: No acute osseous abnormalities. LYMPH NODES: No gross evidence for lymphadenopathy. SOFT TISSUE/ABDOMINAL WALL: Unremarkable IMPRESSION: 1. Choledocholithiasis with at least 2 stones near the distal common bile duct. 2. Distended gallbladder with cholelithiasis. Distention likely secondary to choledocholithiasis. 3. Submucosal fat deposition throughout the colon with thickened mcdonnell. Findings likely represent a c hronic colitis.
[2022-01-10 16:34] LABS: Potassium 3.3 mmol/L (3.5-5.1)
[2022-01-10] MEDS ORDERED: cefTRIAXone IN SWFI 1,000 MG/10 ML SYRINGE IVP STA (16:35)
[2022-01-10 16:36] LABS: Band Neutrophils % 14 %; Eosinophils # (M) 0.11 k/uL (0-0.7); Lymphocytes # (M) 0.28 k/uL (1.0-4.8); Neutrophils % (M) 79 %; Nucleated Red Blood Cells 0 /100 WBC (0-0); Total Cells Counted 100
[2022-01-10] MEDS ORDERED: metroNIDAZOLE-NS PMX 500 MG in SALINE 1 100ML.BAG IVPB STA (16:36)
[2022-01-10] MEDS ORDERED: IBUPROFEN 600 MG TAB PO STA (17:15)
[2022-01-10] MEDS ORDERED: SODIUM CHLORIDE 0.9% 1,000 ML IV SCH (17:45)
[2022-01-10 18:21] LABS: Appearance,Urine Cloudy (Clear); Bilirubin,Urine Negative (Negative); Blood,Urine Trace (Negative); Color,Urine Yellow; Glucose,Urine (UA) 4+ (Negative); Hyaline Casts,Urine 1 /lpf (0-2); Leukocyte Esterase,Urine Negative (Negative); Mucus,Urine Rare /hpf; Nitrite,Urine Negative (Negative); Protein,Urine 1+ (Negative); RBC,Urine 1 /hpf (0-5); Specific Gravity,Urine 1.018 (1.001-1.035); Squamous Epithelial Cell,Urine 1 /hpf (0-4); Urobilinogen,Urine <2.0 mg/dL (<2.0); WBC,Urine 2 /hpf (0-5)
[2022-01-10] MEDS ORDERED: POTASSIUM CHLORIDE ER 20 MEQ TAB.ER PO STA (18:24)
[2022-01-10 18:28] LABS: Ketones,Urine 2+ (Negative)
[2022-01-10 18:51] VITALS: BP 111/53; PULSE 87; TEMP 100.8
== END 2022-01-10 20:37 | disposition other institution (70) ==
LOC: EC 14:52
DX: A41.9 Sepsis, unspecified organism (principal); E87.2 Acidosis; K80.70 Calculus of gallbladder and bile duct without cholecystitis without obstruction; E87.6 Hypokalemia; R74.01 Elevation of levels of liver transaminase levels; R74.8 Abnormal levels of other serum enzymes; I10 Essential (primary) hypertension; I25.10 Atherosclerotic heart disease of native coronary artery without angina pectoris; E11.9 Type 2 diabetes mellitus without complications; E78.5 Hyperlipidemia, unspecified; Z79.82 Long term (current) use of aspirin; Z79.84 Long term (current) use of oral hypoglycemic drugs; Z88.0 Allergy status to penicillin; Z88.8 Allergy status to other drugs, medicaments and biological substances; Z95.1 Presence of aortocoronary bypass graft; Z91.041 Radiographic dye allergy status; Z79.899 Other long term (current) drug therapy; Z79.02 Long term (current) use of antithrombotics/antiplatelets
CPT/HCPCS: 36415; 93005; 80053; 83605; 83690; 84484; 85025; 85610; 81001; 87040; 74176; 99285; 96365; 96375; 96361; J2405; J0696; J1170

== ENCOUNTER → 2023-05-31 | Outpatient (CLI) | payer MEDICARE, OTHER ==
[2023-05-31 14:17] VITALS: BP 123/78; PULSE 88; RESP 17; TEMP 98.4
--- NOTE | 2023-05-31 15:10 | P.HPOB ---
History of Present Illness H&P Date: 05/31/23 Chief Complaint: The patient is here for her routine gynecologic exam and ma mmogram. This is a 73-year-old with an LMP of 1998. The patient is without gynecologic complaints and denies any postmenopausal bleeding. Review of Systems Patient's weight has been stable. She denies respiratory, cardiac, or GI problems. Past Medical History Past Medical History: Coronary Artery Disease (CAD), Diabetes Mellitus, Hyperlipidemia, Hypertension Additional Past Medical History / Comment(s): Cardiac valve insufficiency and osteopenia (used Fosamax for 3 months). PAST [employer] ATT[employer] HISTORY: She has no history of STDs. History of Any Multi-Drug Resistant Organisms: None Reported Past Surgical History: Breast Surgery, Coronary Bypass/CABG, Heart Catheterization With Stent Additional Past Surgical History / Comment(s): triple bypass. Colonoscopy 2013 (2nd),[facility] Past Anesthesia/Blood Transfusion Reactions: No Reported Reaction Additional Past Anesthesia/Blood Transfusion Reaction / Comment(s): unknown hx of blood transfusion. Date of Last Stent Placement:: 10/24/13 Past Psychological History: Anxiety, Depression Smoking Status: Never smoker Past Alcohol Use History: None Reported Past Drug Use History: None Reported Additional History: She has been a since 2020. She lives at least part of the time with her daughter near [place], but still owns her home in [place]. - Past Family History Father Family Medical History: Diabetes Mellitus, Myocardial Infarction ([place]) Mother Family Medical History: Cancer, Myocardial Infarction ([place]) Additional Family Medical History / Comment(s): Maternal aunt had breast cancer. Brother(s) Family Medical History: Diabetes Mellitus Medications and Allergies Home Medications Medication Instructions Recorded Confirmed Type Aspirin 325 mg PO DAILY 05/24/18 05/31/23 History Atorvastatin [Lipitor] 80 mg PO DAILY 05/24/18 05/31/23 History Cholecalciferol (Vitamin D3) 2,000 unit PO DAILY 05/24/18 05/31/23 History [Vitamin D3] Losartan/Hydrochlorothiazide 1 tab PO QAM 05/24/18 05/31/23 History [Losartan-Hctz 100-25 mg Tab] Metoprolol Tartrate [Lopressor] 200 mg PO QAM 05/24/18 05/31/23 History metFORMIN HCL [Glucophage] 500 mg PO TID 05/24/18 05/31/23 History Acetaminophen-Codeine 300-30mg 1 - 2 tab PO Q4-6H PRN 06/11/20 05/31/23 History [Tylenol w/codeine #3] Ezetimibe [Zetia] 10 mg PO DAILY 06/11/20 05/31/23 History Metoprolol Tartrate [Lopressor] 100 mg PO 1700 06/11/20 05/31/23 History amLODIPine BESYLATE 5 mg PO QAM 06/11/20 05/31/23 History Allergies Allergy/AdvReac Type Severity Reaction Status Date / Time Penicillins Allergy Unknown Unknown Verified 05/31/23 14:07 Iodine and Iodide Containing Allergy Anaphylaxis Verified 05/31/23 14:07 Produc alendronate sodium AdvReac severe Verified 05/31/23 14:07 [From Fosamax] sore mouth,loss of taste Exam Vital Signs Temp Pulse Resp BP Pulse Ox 05/31/23 14:09 98.4 F 88 17 123/78 97 Intake and Output 05/31/23 05/31/23 05/31/23 06:59 14:59 22:59 Other: Weight 69.4 kg Height 5 feet 0 inches, weight 153 pounds, BMI 29.9. This is a well-developed well-nourished white female who is alert and oriented times 3 in no acute distress. HEENT: Within normal limits. NECK: Supple without mass or thyromegaly. CHEST AND LUNGS: Clear to auscultation. HEART: Regular rate and rhythm. BREASTS: Are without mass or discharge. AXILLARY EXAM: Negative for adenopathy. BACK: Negative for CVA tenderness. ABDOMEN: Soft, nontender, without palpable masses. PELVIC EXAM: Normal external genitalia with mild atrophy. Cervix and vagina appear normal with mild atrophy. There is no unusual discharge. There is no evidence of prolapse. The uterus is midposition, nongravid size and nontender. There are no palpable adnexal masses or tenderness. RECTAL EXAM: Rectovaginal exam is negative for mass or tenderness and is negative for occult blood. EXTREMITIES: Nontender. IMPRESSION: 1. 73-year-old menopausal female with normal gynecologic exam. 2. History of osteopenia. PLAN: 1. Pap smear was performed. If this is negative, we will plan on discontinuing Pap smears since this would be her third negative Pap smear in 10 years. 2. Self breast awareness was discussed with the patient. We have also discussed symptoms associated with inflammatory breast cancer. 3. Screening mammogram will be done today. 4. Osteoporosis prevention was discussed. I have stressed the importance of adequate calcium, vitamin D and regular exercise. Recommended amounts of calcium and vitamin D were also discussed. Her last bone density test was done in 2015. I recommended she do another bone density test. The order slip was given to the patient for this. 5. PHQ-2 questionnaire was given and she scored 2 out of 6. She denies any thoughts of hurting herself or hurting others. I have recommended that she follow up with her PCP for further discussion regarding feelings of depression. 6. The patient was advised to return in 1-2 years for her well woman examination.
--- NOTE | 2023-06-01 21:18 | MM ---
Reason for Exam: Screening (asymptomatic). Last mammogram was performed 5 year(s) and 0 month(s) ago. Patient History: Menarche at age 14. First Full-Term at age 29. Postmenopausal. Benign Excisional Biopsy on the right side. Maternal aunt had breast cancer, age 71. Risk Values: Samantha 5 year model risk: 2.3%. NCI Lifetime model risk: 6.3%. Prior Study Comparison: 10/07/2015 Bilateral Screening Mammogram, [facility]. 04/05/2017 Bilateral Screening Mammogram, [facility]. 05/24/2018 Bilateral Screening Mammogram, [facility]. Tissue Density: There are scattered fibroglandular densities. Findings: Analyzed By CAD. In the right breast, grouped calcifications anteriorly in the lower quadrant appear new. Further magnification views are recommended. Otherwise, no significant change from prior exams. Overall Assessment: Incomplete: need additional imaging evaluation, BI-RAD 0 Management: Special View Mammogram of the right breast. To include mag CC, magnified lateral, and 3-D lateral views. [facility] will attempt to contact patient to return for supplemental views and ultrasound if indicated. Electronically signed and approved by: Boyd Horowitz M.D. Radiologist
== END ==
LOC: WWCWWP 13:50
PROVIDERS: ATTEND Obstetrics & Gynecology
DX: Z12.31 Encounter for screening mammogram for malignant neoplasm of breast (principal); M85.80 Other specified disorders of bone density and structure, unspecified site; I25.10 Atherosclerotic heart disease of native coronary artery without angina pectoris; I10 Essential (primary) hypertension; E78.5 Hyperlipidemia, unspecified; E11.9 Type 2 diabetes mellitus without complications; Z80.3 Family history of malignant neoplasm of breast; Z78.0 Asymptomatic menopausal state; Z88.8 Allergy status to other drugs, medicaments and biological substances; Z88.0 Allergy status to penicillin; Z79.82 Long term (current) use of aspirin; Z79.84 Long term (current) use of oral hypoglycemic drugs; Z79.899 Other long term (current) drug therapy
CPT/HCPCS: 77063; 77067

== ENCOUNTER → 2023-07-07 | Outpatient (CLI) | payer MEDICARE, OTHER ==
[2023-07-07 08:18] VITALS: RESP 17
--- NOTE | 2023-07-07 08:20 | P.GSHP ---
History of Present Illness H&P Date: 07/07/23 Chief Complaint: abnormal right breast mammogram Jessica is a 73 year old white female seen in consultation for Dr. Valverde regarding a mammographic abnormality in the right breast. It is in the lower medial aspect of the breast. She underwent a bilateral screening mammogram on [id number] nothing of concern was noted in the left breast in the right breast there were some calcifications of concern and a diagnostic mammogram was performed on [id number]. This led to recommendation for a right breast stereotactic core biopsy. Her last mammogram prior to this had been approximately 5 years ago. She did not feel any lumps masses or nodules of concern in either breast. She is not complaining of any recent trauma or infection in the breast. She is not complaining of any abnormal nipple discharge or skin changes. She did have an open right breast biopsy many years ago which was benign. Caffeine: 2-3 cups coffee/day nicotine: none chocolate: occasional BCP: less than 1 year in her 20's hormones: none Family History: mother: lung cancer smoker maternal uncle: cancer ? type maternal aunt: breast paternal uncle: brain cancer Hormonal history: Menarche: 14 , breast fed: no, age at first : 29 menopause: 49 Surgical History: CABG at 49 breast biopsy gallbladder right wrist plate placed cardiac stint Medical History: ocular migraines diabetes HTN high cholesterol Social History: nicotine: none alcohol: none drugs: none - Constitutional Constitutional: Denies chills, Denies fever - EENT Eyes: denies blurred vision, denies pain Ears: bilateral: tinnitus, deny: decreased hearing Ears, nose, mouth and throat: Reports headache - Breasts Breasts: bilateral: as per HPI - Cardiovascular Cardiovascular: Reports as per HPI - Respiratory Respiratory: Denies cough, Denies 7 - Gastrointestinal Gastrointestinal: Denies abdominal pain, Denies diarrhea, Denies nausea, Denies vomiting - Genitourinary (Female) Genitourinary: Denies dysuria, Denies hematuria - Menstruation Menstruation: Reports postmenopausal - Musculoskeletal Musculoskeletal: Denies myalgias - Integumentary Integumentary: Denies pruritus, Denies rash - Neurological Neurological: Denies numbness, Denies weakness - Psychiatric Psychiatric: Denies anxiety, Denies depression - Endocrine Endocrine: Denies fatigue, Denies weight change - Hematologic/Lymphatic Comment: none - Allergic/Immunologic Allergic/Immunologic: Reports seasonal allergies Past Medical History Past Medical History: Coronary Artery Disease (CAD), Diabetes Mellitus, Hyperlipidemia, Hypertension Additional Past Medical History / Comment(s): Cardiac valve insufficiency and osteopenia (used Fosamax for 3 months). 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 History of Any Multi-Drug Resistant Organisms: None Reported Past Surgical History: Breast Surgery, Coronary Bypass/CABG, Heart Catheterization With Stent Additional Past Surgical History / Comment(s): triple bypass. Colonoscopy 2014 (2nd),[facility] Past Anesthesia/Blood Transfusion Reactions: No Reported Reaction Additional Past Anesthesia/Blood Transfusion Reaction / Comment(s): unknown hx of blood transfusion. Date of Last Stent Placement:: 10/24/13 Past Psychological History: Anxiety, Depression Smoking Status: Never smoker Past Alcohol Use History: None Reported Past Drug Use History: None Reported - Past Family History Father Family Medical History: Diabetes Mellitus, Myocardial Infarction ([place]) Mother Family Medical History: Cancer, Myocardial Infarction ([place]) Additional Family Medical History / Comment(s): Maternal aunt had breast cancer. Brother(s) Family Medical History: Diabetes Mellitus Medications and Allergies Home Medications Medication Instructions Recorded Confirmed Type Aspirin 325 mg PO DAILY 05/24/18 07/07/23 History Atorvastatin [Lipitor] 80 mg PO DAILY 05/24/18 07/07/23 History Cholecalciferol (Vitamin D3) 2,000 unit PO DAILY 05/24/18 07/07/23 History [Vitamin D3] Losartan/Hydrochlorothiazide 1 tab PO QAM 05/24/18 07/07/23 History [Losartan-Hctz 100-25 mg Tab] Metoprolol Tartrate [Lopressor] 200 mg PO QAM 05/24/18 07/07/23 History metFORMIN HCL [Glucophage] 1,000 mg PO BID 05/24/18 07/07/23 History Acetaminophen-Codeine 300-30mg 1 - 2 tab PO Q4-6H PRN 06/11/20 07/07/23 History [Tylenol w/codeine #3] Ezetimibe [Zetia] 10 mg PO DAILY 06/11/20 07/07/23 History Metoprolol Tartrate [Lopressor] 100 mg PO 1700 06/11/20 07/07/23 History amLODIPine BESYLATE 5 mg PO BID 06/11/20 07/07/23 History Allergies Allergy/AdvReac Type Severity Reaction Status Date / Time Penicillins Allergy Unknown Unknown Verified 07/07/23 07:56 adhesive Allergy Rash/Hives Verified 07/07/23 07:56 Iodine and Iodide Containing Allergy Anaphylaxis Verified 07/07/23 07:56 Produc alendronate sodium AdvReac severe Verified 07/07/23 07:56 [From Fosamax] sore mouth,loss of taste Surgical - Exam Vital Signs Resp 17 07/07/23 07:57 - General no distress - Eyes normal ocular movement - Neck trachea midline - Respiratory normal respiratory effort, clear to auscultation - Cardiovascular Rhythm: regular Heart Sounds: normal: S1, S2 - Abdomen Abdomen: soft, non tender, no guarding, no rigid, no rebound - Integumentary normal turgor - Neurologic no disoriented, no combative - Musculoskeletal normal gait - Psychiatric oriented to time, oriented to person, oriented to place, speech is normal, memory intact Breast Exam: BRA: 38DD Inspection: Right breast slightly larger than left breast, bilateral grade 3 ptosis Palpation: Right breast: Right breast slightly larger than left breast, multiple positional exam fibrocystic changes no dominant masses or nodules of concern Right axilla: No adenopathy of concern Left breast: Multi-positional exam no dominant masses or nodules of concern Left axilla: No adenopathy of concern Results Mammogram reviewed with Dr. Brown from radiology, lower inner right breast microcalcifications of concern no lesions of concern in left breast Assessment and Plan Assessment: Impression: Mammographic abnormality right breast Diabetes Status post coronary artery bypass grafting coronary stent Ocular migraines Hypertension Diabetes High cholesterol Plan: Right breast stereotactic core biopsy Risk and benefits of the procedure discussed with the patient. Risks include but are not limited to bleeding, infection, reaction to the anesthetic. If the tissue sampling were felt to be discordant and further tissue acquisition may be necessary. The patient understands and wishes to proceed area Cc: Dr. Valverde, Dr. Chung
--- NOTE | 2023-07-07 09:23 | P.PCN ---
Date of Procedure: 07/07/23 Preoperative Diagnosis: Microcalcifications of concern right breast Postoperative Diagnosis: Same Procedure(s) Performed: Right breast stereotactic core biopsy Anesthesia: local Surgeon: Kae Olson Pathology: other (Breast tissue/radiograph of specimen reveals microcalcifications of concern) Condition: stable Disposition: same day Indications for Procedure: Microcalcifications of concern right breast lower inner quadrant Operative Findings: Radiograph of specimen reveals microcalcifications of concern Description of Procedure: Jessica is a 73-year-old white female who underwent a routine screening mammogram was noted to have microcalcifications of concern in the right breast. This was reviewed with Dr. Brown and stereotactic core biopsy was recommended. The patient was examined and no dominant masses or nodules of concern were noted in either breast. The risks and benefits of the procedure were discussed with her and she wished to proceed. She was taken to the stereotactic core biopsy room. She was positioned in the upright chair and a investigation division lieutenant film was obtained. A lateral approach was utilized. The area of concern was identified. The lesion was targeted. A lateral arm was utilized to do the procedure. The breast was prepped using chlorhexidine. 20 mL of 1% lidocaine were used to anesthetize the area of concern. A 9-gauge vacuum-assisted core rotating biopsy needle was driven to the correct coordinates. A prefire film was obtained. The needle was adjusted to the correct location. The needle was fired. A post fire film was obtained. The needle was noted to be in the correct location. 2 core biopsy specimens were obtained. The specimen revealed that the calcifications of concern had been adequately sampled. A suture marked hotpack clip was placed. Radiograph revealed this to be in the correct location. The patient tolerated the procedure in stable condition. The specimen was sent for pathology. The patient will follow-up with Dr. Cabello.
== END ==
LOC: WWCWWP 07:11
PROVIDERS: ATTEND Surgery
DX: R92.0 Mammographic microcalcification found on diagnostic imaging of breast (principal); E11.9 Type 2 diabetes mellitus without complications; E78.00 Pure hypercholesterolemia, unspecified; I10 Essential (primary) hypertension; I25.10 Atherosclerotic heart disease of native coronary artery without angina pectoris; G43.B0 Ophthalmoplegic migraine, not intractable; M85.80 Other specified disorders of bone density and structure, unspecified site; F32.A Depression, unspecified; F41.9 Anxiety disorder, unspecified; Z79.84 Long term (current) use of oral hypoglycemic drugs; Z80.3 Family history of malignant neoplasm of breast; Z95.5 Presence of coronary angioplasty implant and graft; Z95.1 Presence of aortocoronary bypass graft; Z79.899 Other long term (current) drug therapy; Z88.0 Allergy status to penicillin; Z91.041 Radiographic dye allergy status; Z91.048 Other nonmedicinal substance allergy status; Z88.8 Allergy status to other drugs, medicaments and biological substances; Z79.82 Long term (current) use of aspirin
CPT/HCPCS: 19081; A4648

== ENCOUNTER → 2023-07-07 | Day surgery (SDC) | payer MEDICARE, OTHER ==
[2023-07-07 07:52] VITALS: RESP 16
[2023-07-07 09:35] VITALS: BP 121/78; PULSE 69; TEMP 98.1
== END ==
LOC: RADMAMWWP 07:09
PROVIDERS: ATTEND Surgery
DX: D24.1 Benign neoplasm of right breast (principal); N62 Hypertrophy of breast
CPT/HCPCS: 88305; 19081; J2001

== ENCOUNTER → 2023-07-21 | Outpatient (CLI) | payer MEDICARE, OTHER ==
--- NOTE | 2023-07-21 13:15 | P.PN ---
Subjective Progress Note Date: 07/21/23 Principal diagnosis: fibrocystic breast changes Jessica is a 73 year old white female status post stero biopsy of the right breast on 07-07-23. Her pathology was benign concordant. She tolerated the procedure without difficulty. Objective - Constitutional General appearance: Present: cooperative - EENT Eyes: Present: EOMI ENT: Present: hearing grossly normal - Neck Neck: Present: normal ROM - Respiratory Respiratory: bilateral: CTA - Cardiovascular Rhythm: regular Abnormal Heart Sounds: Present: systolic murmur - Integumentary Integumentary Comment(s): Biopsy site right breast clean and dry no evidence of infection or hematoma Integumentary: Present: normal turgor - Musculoskeletal Musculoskeletal: Present: gait normal - Psychiatric Psychiatric: Present: A&O x's 3, appropriate affect, intact judgment & insight Assessment and Plan Assessment: Impression: Patient status post stereo biopsy right breast on [id number] benign concordant/fibrocystic change with fibroadenomatoid hyperplasia and focal microc alcification Plan: Repeat right breast mammogram in 6 months with physician exam at that time CC: DR Tan
== END ==
LOC: WWCWWP 12:47
PROVIDERS: ATTEND Surgery
DX: R92.8 Other abnormal and inconclusive findings on diagnostic imaging of breast (principal); N60.11 Diffuse cystic mastopathy of right breast; Z88.0 Allergy status to penicillin; Z91.048 Other nonmedicinal substance allergy status; Z91.041 Radiographic dye allergy status; Z79.82 Long term (current) use of aspirin

== ENCOUNTER → 2024-01-09 | Outpatient (CLI) | payer MEDICARE, OTHER ==
--- NOTE | 2024-01-09 09:13 | MM ---
Reason for Exam: Follow-up at short interval from prior study. Last screening mammogram was performed 7 month(s) ago. Patient History: Menarche at age 14. First Full-Term at age 29. Postmenopausal. 07/07/2023, Benign MG stereo VAD BX RT on the right side. Benign Excisional Biopsy on the right side. Maternal aunt had breast cancer, age 71. Risk Values: Samantha 5 year model risk: 2.9%. NCI Lifetime model risk: 7.9%. Prior Study Comparison: 05/24/2018 Bilateral Screening Mammogram, [facility]. 05/31/2023 Bilateral MG 3D screening mammo w/cad, [facility]. 06/06/2023 Right MG 3D work up w/cad RT, [facility]. Tissue Density: Right: There are scattered areas of fibroglandular density. Findings: Analyzed By CAD. Pattern appears stable. Biopsy clip is in the anterior right breast. No significant interval change is evident. No suspicious groups of microcalcifications, spiculated or lobular masses, architectural distortion or other secondary signs of malignancy are mammographically apparent. Overall Assessment: Benign, BI-RAD 2 Management: Screening Mammogram of both breasts in 6 months. A negative mammogram report should not preclude additional follow up of suspicious palpable abnormalities. Patient should continue monthly self breast exam. A clinical breast exam by your physician is recommended on an annual basis and results should be correlated with mammographic findings. Note on Samantha scores and lifetime risk: 1. A Samantha score greater than 3% is considered moderate risk. If this is the case, consider specialist referral to assess eligibility for a risk reducing agent. 2. If overall lifetime risk for the development of breast cancer is 20% or higher, the patient may qualify for future screening with alternating mammogram and breast MRI. Electronically signed and approved by: Ernesto Brown D.O. Radiologis
== END | disposition home or self-care (01) ==
LOC: RADMAMWWP 08:44
PROVIDERS: ATTEND Surgery
DX: R92.321 Mammographic fibroglandular density, right breast (principal); Z80.3 Family history of malignant neoplasm of breast; Z78.0 Asymptomatic menopausal state
CPT/HCPCS: 77065; G0279; 77061

== ENCOUNTER → 2024-02-02 | Outpatient (CLI) | payer MEDICARE, OTHER ==
--- NOTE | 2024-02-02 13:56 | P.PN ---
Subjective Progress Note Date: 02/02/24 Principal diagnosis: fibrocystic breast changes abnormal right breast mammogram Jessica is a 73 year old white female seen in consultation for Dr. Valverde regarding a mammographic abnormality in the right breast. It is in the lower medial aspect of the breast. She underwent a bilateral screening mammogram on [id number] nothing of concern was noted in the left breast in the right breast there were some calcifications of concern and a diagnostic mammogram was performed on [id number]. This led to recommendation for a right breast stereotactic core biopsy. Her last mammogram prior to this had been approximately 5 years ago. She did not feel any lumps masses or nodules of concern in either breast. She is not complaining of any recent trauma or infection in the breast. She is not complaining of any abnormal nipple discharge or skin changes. She did have an open right breast biopsy many years ago which was benign. She underwent a stero biopsy of the site on 07-07-23 which was benign specific. She had a right breast mammogram on 01-09-24 BIRAD 2. She is not complaining of any new lumps masses or nodules of concern in either breast. Pramod 5-year risk of breast cancer 2.9%. We have discussed chemoprophylaxis and the patient has declined. Caffeine: 2-3 cups coffee/day nicotine: none chocolate: occasional BCP: less than 1 year in her 20's hormones: none Family History: mother: lung cancer smoker maternal uncle: cancer ? type maternal aunt: breast paternal uncle: brain cancer Hormonal history: Menarche: 14 , breast fed: no, age at first : 29 menopause: 49 Surgical History: CABG at 49 breast biopsy gallbladder right wrist plate placed cardiac stint Medical History: ocular migraines diabetes HTN high cholesterol Social History: nicotine: none alcohol: none drugs: none - Constitutional Constitutional: Denies chills, Denies fever - EENT Eyes: denies blurred vision, denies pain Ears: bilateral: tinnitus, deny: decreased hearing Ears, nose, mouth and throat: Reports headache - Breasts Breasts: bilateral: as per HPI - Cardiovascular Cardiovascular: Reports as per HPI - Respiratory Respiratory: Denies cough - Gastrointestinal Gastrointestinal: Denies abdominal pain, Denies diarrhea, Denies nausea, Denies vomiting - Genitourinary (Female) Genitourinary: Denies dysuria, Denies hematuria - Menstruation Menstruation: Reports postmenopausal - Musculoskeletal Musculoskeletal: Denies myalgias - Integumentary Integumentary: Denies pruritus, Denies rash - Neurological Neurological: Denies numbness, Denies weakness - Psychiatric Psychiatric: Denies anxiety, Denies depression - Endocrine Endocrine: Denies fatigue, Denies weight change - Hematologic/Lymphatic Comment: none - Allergic/Immunologic Allergic/Immunologic: Reports seasonal allergies Past Medical History Past Medical History: Coronary Artery Disease (CAD), Diabetes Mellitus, Hyperlipidemia, Hypertension Additional Past Medical History / Comment(s): Cardiac valve insufficiency and osteopenia (used Fosamax for 3 months). 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 History of Any Multi-Drug Resistant Organisms: None Reported Past Surgical History: Breast Surgery, Coronary Bypass/CABG, Heart Catheterization With Stent Additional Past Surgical History / Comment(s): triple bypass. Colonoscopy 2013 (2nd),[facility] Past Anesthesia/Blood Transfusion Reactions: No Reported Reaction Additional Past Anesthesia/Blood Transfusion Reaction / Comment(s): unknown hx of blood transfusion. Date of Last Stent Placement:: 10/24/13 Past Psychological History: Anxiety, Depression Smoking Status: Never smoker Past Alcohol Use History: None Reported Past Drug Use History: None Reported - Past Family History Father Family Medical History: Diabetes Mellitus, Myocardial Infarction ([place]) Mother Family Medical History: Cancer, Myocardial Infarction ([place]) Additional Family Medical History / Comment(s): Maternal aunt had breast cancer. Brother(s) Family Medical History: Diabetes Mellitus Medications and Allergies Home Medications Medication Instructions Recorded Confirmed Type Aspirin 325 mg PO DAILY 05/24/18 07/07/23 History Atorvastatin [Lipitor] 80 mg PO DAILY 05/24/18 07/07/23 History Cholecalciferol (Vitamin D3) 2,000 unit PO DAILY 05/24/18 07/07/23 History [Vitamin D3] Losartan/Hydrochlorothiazide 1 tab PO QAM 05/24/18 07/07/23 History [Losartan-Hctz 100-25 mg Tab] Metoprolol Tartrate [Lopressor] 200 mg PO QAM 05/24/18 07/07/23 History metFORMIN HCL [Glucophage] 1,000 mg PO BID 05/24/18 07/07/23 History Acetaminophen-Codeine 300-30mg 1 - 2 tab PO Q4-6H PRN 06/11/20 07/07/23 History [Tylenol w/codeine #3] Ezetimibe [Zetia] 10 mg PO DAILY 06/11/20 07/07/23 History Metoprolol Tartrate [Lopressor] 100 mg PO 1700 06/11/20 07/07/23 History amLODIPine BESYLATE 5 mg PO BID 06/11/20 07/07/23 History Allergies Allergy/AdvReac Type Severity Reaction Status Date / Time Penicillins Allergy Unknown Unknown Verified 07/07/23 07:56 adhesive Allergy Rash/Hives Verified 07/07/23 07:56 Iodine and Iodide Containing Allergy Anaphylaxis Verified 07/07/23 07:56 Produc alendronate sodium AdvReac severe Verified 07/07/23 07:56 [From Fosamax] sore mouth,loss of taste Objective - Constitutional General appearance: Present: cooperative - EENT Eyes: Present: EOMI ENT: Present: hearing grossly normal - Neck Neck: Present: normal ROM - Respiratory Respiratory: bilateral: CTA - Cardiovascular Rhythm: regular Heart sounds: normal: S1, S2 - Integumentary Integumentary: Present: normal turgor - Musculoskeletal Musculoskeletal: Present: gait normal - Psychiatric Psychiatric: Present: A&O x's 3, appropriate affect, intact judgment & insight - Additional findings Additional findings: Breast Exam: BRA: 38DD Inspection: Right breast slightly larger than left breast, bilateral grade 3 ptosis Palpation: Right breast: Right breast slightly larger than left breast, multiple positional exam fibrocystic changes no dominant masses or nodules of concern Right axilla: No adenopathy of concern Left breast: Multi-positional exam no dominant masses or nodules of concern Left axilla: No adenopathy of concern Assessment and Plan Assessment: Impression: Mammographic abnormality right breast/ stero biopsy benign 07-07-23 Diabetes Status post coronary artery bypass grafting coronary stent Ocular migraines Hypertension Diabetes High cholesterol right breast mammogram on 01-09-24 BIRAD 2; bilateral mammogram in 6 months pramod risk: 5 year: 2.9% Plan: bilateral mammogram in 6 months with appointment at that time Cc: Dr. Valverde, Dr. Chung
[2024-02-02 14:04] VITALS: BP 126/70; PULSE 71; RESP 16; TEMP 98.4
== END | disposition home or self-care (01) ==
LOC: WWCWWP 12:46
PROVIDERS: ATTEND Surgery
DX: R92.8 Other abnormal and inconclusive findings on diagnostic imaging of breast (principal); N60.11 Diffuse cystic mastopathy of right breast; N60.12 Diffuse cystic mastopathy of left breast; E11.9 Type 2 diabetes mellitus without complications; I10 Essential (primary) hypertension; E78.5 Hyperlipidemia, unspecified; I25.10 Atherosclerotic heart disease of native coronary artery without angina pectoris; Z95.5 Presence of coronary angioplasty implant and graft; Z95.1 Presence of aortocoronary bypass graft; Z88.1 Allergy status to other antibiotic agents; Z88.8 Allergy status to other drugs, medicaments and biological substances; Z91.048 Other nonmedicinal substance allergy status

== ENCOUNTER → 2024-07-02 | Outpatient (CLI) | payer MEDICARE, OTHER ==
--- NOTE | 2024-07-08 22:53 | BD ---
EXAMINATION TYPE: Axial Bone Density DATE OF EXAM: 07/02/2024 CLINICAL HISTORY: 74 years old Female. ICD-10 CODE: M85.9 DISORDER OF BONE DENSITY , Additional Hist ory: Height: 59 Weight: 154.0 FRAX RISK QUESTIONS: Alcohol (3 or more units per day): no Family History (Parent hip fracture): no Glucocorticoids (More than 3mos): no (Ex: prednisone, prednisolone, methylprednisolone, dexamethasone, and hydrocortisone). History of Fracture in Adulthood: wrist rt Secondary Osteoporosis: 1. Type 1 Diabetes: no 2. Hyperthyroidism: no 3. Menopause before 45: no 4. Malnutrition: no 5. Chronic liver disease: no Rheumatoid Arthritis: no Current Tobacco Use: no RISK FACTORS HISTORY OF: Hip Fracture (Right/Left): no Spine Fracture: no History of Wrist Fracture: Rt Wrist When: 2021 Surgery to Spine/Hip(right/left)/Wrist (right/left): rt wrist When: 2021 MEDICATIONS: Thyroid Medications: no Osteoporosis Medications: no EXAM MEASUREMENTS: Bone mineral densitometry was performed using the [employer] System. Bone mineral density as measured about the Lumbar spine is: ----- L1-L4(G/cm2): 1.056 T Score Values are as follows: ----- L1: -0.9 ----- L2: -1.8 ----- L3: -0.7 ----- L4: -1.0 ----- L1-L4: -1.0 Z Score Values are as follows: ----- L1: 0.7 ----- L2: -0.3 ----- L3: 0.8 ----- L4: 0.5 ----- L1-L4: 0.5 Bone mineral density has: decreased -5.1 % since study of: 2016 Bone mineral density about the R hip (g/cm2): 0.709 Bone mineral density about the L hip (g/cm2): 0.702 T Score values are as follows: -----R Neck: -2.3 -----L Neck: -2.5 -----R Total: -2.4 -----L Total: -2.3 Z Score values are as follows: -----R Neck: -0.6 -----L Neck: -0.8 -----R Total: -1.0 -----L Total: -0.9 Bone mineral density has: decreased -11.4 % since study of: 2016 FRAX%s: The graph provided illustrates a 22.9% chance for a major osteoporotic fx and a 6.0% chance f or the hips probability for fx in 10 years time. IMPRESSION: Osteopenia (T Score between -2.5 and -1). There is slightly increased risk of fracture and the patient may be considered for treatment. Re-Screen 2-5 years. NOTE: T-SCORE=SD OF THE YOUNG ADULT MEAN. [facility], , 07/08/2024 10:51 PM
== END | disposition home or self-care (01) ==
LOC: RADBDWWP 10:43
PROVIDERS: ATTEND Family Medicine
DX: M85.89 Other specified disorders of bone density and structure, multiple sites (principal)
CPT/HCPCS: 77080

== ENCOUNTER → 2024-07-02 | Outpatient (CLI) | payer MEDICARE, OTHER ==
--- NOTE | 2024-07-06 12:59 | MM ---
Reason for Exam: Screening (asymptomatic). Last mammogram was performed 1 year(s) and 1 month(s) ago. Patient History: Menarche at age 14. First Full-Term at age 29. Postmenopausal. 07/07/2023, Benign MG stereo VAD BX RT on the right side. Benign Excisional Biopsy on the right side. Maternal aunt had breast cancer, age 71. Risk Values: Samantha 5 year model risk: 2.9%. NCI Lifetime model risk: 7.5%. Prior Study Comparison: 05/31/2023 Bilateral MG 3D screening mammo w/cad, [facility]. 06/06/2023 Right MG 3D work up w/cad RT, [facility]. 01/09/2024 Right MG 3D diag mammo w/cad RT, [facility]. Tissue Density: The breasts are almost entirely fatty. Findings: Analyzed By CAD. Right breast: There is no suspicious group of microcalcifications or new suspicious mass. Left breast: There is no suspicious group of microcalcifications or new suspicious mass. Right breast biopsy clip. Right breast: There is no suspicious group of microcalcifications or new suspicious mass. Left breast: There is no suspicious group of microcalcifications or new suspicious mass. Overall Assessment: Negative, BI-RAD 1 Management: Screening Mammogram of both breasts in [address] [facility] will attempt to contact patient to return for supplemental views and ultrasound if indicated. Patient should continue monthly self-breast exams. A clinical breast exam by your physician is recommended on an annual basis. This exam should not preclude additional follow-up of suspicious palpable abnormalities. Note on Samantha scores and lifetime risk: 1. A Samantha score greater than 3% is considered moderate risk. If this is the case, consider specialist referral to assess eligibility for a risk reducing agent. 2. If overall lifetime risk for the development of breast cancer is 20% or higher, the patient may qualify for future screening with alternating mammogram and breast MRI. [facility], , 07/06/2024 12:56 PM. Electronically signed and approved by: Ayden Ledezma DO
== END | disposition home or self-care (01) ==
LOC: RADMAMWWP 10:42
PROVIDERS: ATTEND Surgery
DX: Z12.31 Encounter for screening mammogram for malignant neoplasm of breast (principal); Z78.0 Asymptomatic menopausal state; Z80.3 Family history of malignant neoplasm of breast
CPT/HCPCS: 77063; 77067

== ENCOUNTER → 2024-08-03 | Outpatient (CLI) | payer MEDICARE, OTHER ==
[2024-08-03 12:29] VITALS: BP 127/76; PULSE 75; RESP 16; TEMP 97.2
--- NOTE | 2024-08-03 12:32 | P.PN ---
Subjective Progress Note Date: 08/03/24 Principal diagnosis: fibrocystic breast disease 08-03-24 Principal diagnosis: fibrocystic breast changes Jessica is a 74 year old white female seen in consultation for Dr. Valverde regarding a mammographic abnormality in the right breast. It is in the lower medial aspect of the breast. She underwent a bilateral screening mammogram on [id number] nothing of concern was noted in the left breast in the right breast there were some calcifications of concern and a diagnostic mammogram was performed on [id number]. This led to recommendation for a right breast stereotactic core biopsy. Her last mammogram prior to this had been approximately 5 years ago. She did not feel any lumps masses or nodules of concern in either breast. She is not complaining of any recent trauma or infection in the breast. She is not complaining of any abnormal nipple discharge or skin changes. She did have an open right breast biopsy many years ago which was benign. She underwent a stero biopsy of the site on 07-07-23 which was benign specific. She had a right breast mammogram on 01-09-24 BIRAD 2. She is not complaining of any new lumps masses or nodules of concern in either breast. At this time she is not complaining of any lumps, masses, or nodules in the breast. bilateral mammogram 07-02-24 BIRAD 1 personally reviewed Pramod 5-year risk of breast cancer 2.9%. We have discussed chemoprophylaxis and the patient has declined. Caffeine: 2-3 cups coffee/day nicotine: none chocolate: occasional BCP: less than 1 year in her 20's hormones: none Family History: mother: lung cancer smoker maternal uncle: cancer ? type maternal aunt: breast paternal uncle: brain cancer Hormonal history: Menarche: 14 , breast fed: no, age at first : 29 menopause: 49 Surgical History: CABG at 49 breast biopsy gallbladder right wrist plate placed cardiac stint Medical History: ocular migraines diabetes HTN high cholesterol Social History: nicotine: none alcohol: none drugs: none - Constitutional Constitutional: Denies chills, Denies fever - EENT Eyes: denies blurred vision, denies pain Ears: bilateral: tinnitus, deny: decreased hearing Ears, nose, mouth and throat: Reports headache - Breasts Breasts: bilateral: as per HPI - Cardiovascular Cardiovascular: Reports as per HPI - Respiratory Respiratory: Denies cough - Gastrointestinal Gastrointestinal: Denies abdominal pain, Denies diarrhea, Denies nausea, Denies vomiting - Genitourinary (Female) Genitourinary: Denies dysuria, Denies hematuria - Menstruation Menstruation: Reports postmenopausal - Musculoskeletal Musculoskeletal: Denies myalgias - Integumentary Integumentary: Denies pruritus, Denies rash - Neurological Neurological: Denies numbness, Denies weakness - Psychiatric Psychiatric: Denies anxiety, Denies depression - Endocrine Endocrine: Denies fatigue, Denies weight change - Hematologic/Lymphatic Comment: none - Allergic/Immunologic Allergic/Immunologic: Reports seasonal allergies Past Medical History Past Medical History: Coronary Artery Disease (CAD), Diabetes Mellitus, Hyperlipidemia, Hypertension Additional Past Medical History / Comment(s): Cardiac valve insufficiency and osteopenia (used Fosamax for 3 months). 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 History of Any Multi-Drug Resistant Organisms: None Reported Past Surgical History: Breast Surgery, Coronary Bypass/CABG, Heart Catheterization With Stent Additional Past Surgical History / Comment(s): triple bypass. Colonoscopy 2014 (2nd),[facility]UARDO Past Anesthesia/Blood Transfusion Reactions: No Reported Reaction Additional Past Anesthesia/Blood Transfusion Reaction / Comment(s): unknown hx of blood transfusion. Date of Last Stent Placement:: 10/24/13 Past Psychological History: Anxiety, Depression Smoking Status: Never smoker Past Alcohol Use History: None Reported Past Drug Use History: None Reported - Past Family History Father Family Medical History: Diabetes Mellitus, Myocardial Infarction (ME) Mother Family Medical History: Cancer, Myocardial Infarction (ME) Additional Family Medical History / Comment(s): Maternal aunt had breast cancer. Brother(s) Family Medical History: Diabetes Mellitus Medications and Allergies Home Medications Medication Instructions Recorded Confirmed Type Aspirin 325 mg PO DAILY 05/24/18 07/07/23 History Atorvastatin [Lipitor] 80 mg PO DAILY 05/24/18 07/07/23 History Cholecalciferol (Vitamin D3) 2,000 unit PO DAILY 05/24/18 07/07/23 History [Vitamin D3] Losartan/Hydrochlorothiazide 1 tab PO QAM 05/24/18 07/07/23 History [Losartan-Hctz 100-25 mg Tab] Metoprolol Tartrate [Lopressor] 200 mg PO QAM 05/24/18 07/07/23 History metFORMIN HCL [Glucophage] 1,000 mg PO BID 05/24/18 07/07/23 History Acetaminophen-Codeine 300-30mg 1 - 2 tab PO Q4-6H PRN 06/11/20 07/07/23 History [Tylenol w/codeine #3] Ezetimibe [Zetia] 10 mg PO DAILY 06/11/20 07/07/23 History Metoprolol Tartrate [Lopressor] 100 mg PO 1700 06/11/20 07/07/23 History amLODIPine BESYLATE 5 mg PO BID 06/11/20 07/07/23 History Allergies Allergy/AdvReac Type Severity Reaction Status Date / Time Penicillins Allergy Unknown Unknown Verified 07/07/23 07:56 adhesive Allergy Rash/Hives Verified 07/07/23 07:56 Iodine and Iodide Containing Allergy Anaphylaxis Verified 07/07/23 07:56 Produc alendronate sodium AdvReac severe Verified 07/07/23 07:56 [From Fosamax] sore mouth,loss of taste Objective - Constitutional General appearance: Present: cooperative - EENT Eyes: Present: EOMI ENT: Present: hearing grossly normal - Neck Neck: Present: normal ROM - Respiratory Respiratory: bilateral: CTA - Cardiovascular Rhythm: regular Heart sounds: normal: S1, S2 - Gastrointestinal General gastrointestinal: Present: soft - Integumentary Integumentary: Present: normal turgor - Musculoskeletal Musculoskeletal: Present: gait normal - Psychiatric Psychiatric: Present: A&O x's 3, appropriate affect, intact judgment & insight - Additional findings Additional findings: Breast Exam: BRA: 38DD Inspection: Right breast slightly larger than left breast, bilateral grade 3 ptosis Palpation: Right breast: Right breast slightly larger than left breast, multiple positional exam fibrocystic changes no dominant masses or nodules of concern Right axilla: No adenopathy of concern Left breast: Multi-positional exam no dominant masses or nodules of concern Left axilla: No adenopathy of concern Assessment and Plan Assessment: Impression: Mammographic abnormality right breast/ stero biopsy benign 07-07-23 Diabetes Status post coronary artery bypass grafting coronary stent Ocular migraines Hypertension Diabetes High cholesterol right breast mammogram on 01-09-24 BIRAD 2; bilateral mammogram 07-02-24 BIRAD 1 personally reviewed pramod risk: 5 year: 2.9% Plan: bilateral mammogram in June 2025 with appointment at that time follow up sooner any concerns Cc: Dr. Valverde, Dr. Chung
== END ==
LOC: WWCWWP 11:50
PROVIDERS: ATTEND Surgery
DX: N60.11 Diffuse cystic mastopathy of right breast (principal); R92.8 Other abnormal and inconclusive findings on diagnostic imaging of breast; I10 Essential (primary) hypertension; E11.9 Type 2 diabetes mellitus without complications; E78.00 Pure hypercholesterolemia, unspecified; G43.109 Migraine with aura, not intractable, without status migrainosus; Z95.5 Presence of coronary angioplasty implant and graft; Z95.1 Presence of aortocoronary bypass graft; Z88.0 Allergy status to penicillin; Z88.8 Allergy status to other drugs, medicaments and biological substances; Z91.041 Radiographic dye allergy status; Z79.84 Long term (current) use of oral hypoglycemic drugs; Z79.899 Other long term (current) drug therapy; Z80.3 Family history of malignant neoplasm of breast